=== PATIENT | female | born 1955 | race Caucasian/White ===

== ENCOUNTER 2021-01-02 09:50 | Inpatient (IN) ==
[2021-01-02] MEDS ORDERED: *HR* Rocuronium Bromide 50 MG/5 ML VIAL ONE (10:02)
[2021-01-02] MEDS ORDERED: Dexamethasone 4 MG/ML VIAL ONE (10:02)
[2021-01-02] MEDS ORDERED: Ondansetron 4 MG/2 ML VIAL ONE (10:02)
[2021-01-02] MEDS ORDERED: Lidocaine -MPF 2% 2 ML VIAL ONE (10:02)
[2021-01-02] MEDS ORDERED: *HR* Propofol 200 MG/20 ML VIAL IVP ONE (10:03)
[2021-01-02] MEDS ORDERED: *HR* Remifentanil 1 MG VIAL IVP ONE (10:03)
[2021-01-02] MEDS ORDERED: *HR* FentaNYL (PF) 100 MCG/2 ML VIAL ONE (10:03)
[2021-01-02] MEDS ORDERED: Heparin 1,000 UNITS/500 mL 1,000 ML ONE (10:13)
[2021-01-02] MEDS ORDERED: Protamine Sulfate 50 MG/5 ML VIAL IVP ONE (10:13)
[2021-01-02] MEDS ORDERED: CeFAZolin Syr 2,000MG/20 ML 2,000 MG/20 ML SYRINGE IVPB ONE (10:24)
[2021-01-02] MEDS ORDERED: Ringers Solution, Lactated 1,000 ML IVC SCH (10:30)
[2021-01-02] MEDS ORDERED: *HR* OxyCODONE Immed Rel 5 MG TABLET PO PRN ×2 (10:57→15:37)
[2021-01-02] MEDS ORDERED: *HR* Labetalol 20 MG/4 ML SYRINGE IVP PRN ×2 (10:57→15:37)
[2021-01-02] MEDS ORDERED: Acetaminophen IV 1,000 MG/100 ML BAG IVPB ONE (10:57)
[2021-01-02] MEDS ORDERED: Famotidine 20 MG/2 ML VIAL IVP ONE (10:57)
[2021-01-02] MEDS ORDERED: *HR* HYDROmorphone (PF) 1 MG/ML SYRINGE IVP PRN (10:57)
[2021-01-02] MEDS ORDERED: *HR* Vasopressin 20 UNIT/ML VIAL ONE (11:19)
[2021-01-02] MEDS ORDERED: Ipratropium/Albuterol Neb 3 ML IH ONE (11:22)
[2021-01-02] MEDS ORDERED: ceFAZolin 1,000 MG, Sodium Chloride IRRigation 1,000 ML IR ONE (11:30)
[2021-01-02] MEDS ORDERED: EPHEDrine 50 MG/ML VIAL ONE (12:27)
[2021-01-02] MEDS ORDERED: *HR* Heparin 5,000 UNIT/ML VIAL ONE (13:07)
[2021-01-02] MEDS ORDERED: *HR* PHENYLEPHRINE 1,000 MCG/10 ML SYRINGE IVP ONE (13:49)
[2021-01-02] MEDS ORDERED: Heparin 1,000 UNITS/500 mL 0 ML ONE (13:49)
[2021-01-02] MEDS ORDERED: *HR* Labetalol 20 MG/4 ML SYRINGE IVP ONE (13:52)
[2021-01-02] MEDS ORDERED: Sugammadex Sodium 200 MG/2 ML VIAL IV ONE (13:52)
[2021-01-02] MEDS ORDERED: Naloxone 0.4 MG/ML INJ IVP PRN ×2 (15:37)
[2021-01-02] MEDS ORDERED: *HR* HYDROcodone/Acet 5/325 mg TABLET PO PRN (15:37)
[2021-01-02] MEDS ORDERED: Ondansetron 4 MG/2 ML VIAL IVP PRN (15:37)
[2021-01-02] MEDS ORDERED: Artificial Tears SOLN 15 ML BOTTLE LEFT EYE PRN (17:05)
[2021-01-02] MEDS: *HR* Metformin 500 MG TABLET PO SCH (17:14)
[2021-01-02 17:44] LABS: Basophils % 0.2 %; Eosinophils % 0.1 %; Hematocrit 36.8 % (35.3-44.9); Hemoglobin 11.8 g/dL (11.5-15.4); Immature Granulocytes % 0.6 % (0-4); Lymphocytes # 1.2 K/mcL (0.6-4.6); Lymphocytes % 12.1 %; Mean Corpuscular HGB Conc 32.1 g/dL (31.6-35.5); Mean Corpuscular Hemoglobin 30.8 pg (28.0-33.3); Mean Corpuscular Volume 96.1 fL (83.0-100.0); Mean Platelet Volume 10.7 fL (9.4-12.4); Monocytes # 0.1 K/mcL (0.0-1.3); Monocytes % 1.4 %; Neutrophils # 8.6 K/mcL (1.6-8.9); Platelet Count 176 K/mcL (140-400); Red Blood Count 3.83 M/mcL (3.82-4.97); Red Cell Distribution Width 12.6 % (11.5-14.5); Segmented Neutrophils % 85.6 %
[2021-01-02] MEDS: CeFAZolin 2 GM/120 ML BAG IVPB SCH (19:37)
[2021-01-02] MEDS: *HR* GlipiZIDE XL (24 HR) 10 MG TABLET PO SCH (19:39)
[2021-01-02] MEDS: Budesonide/Formoterol 80/4.5 1 PUFF INH IH SCH (20:10)
[2021-01-03 04:06] LABS: Basophils % 0.1 %; Hematocrit 35.7 % (35.3-44.9); Hemoglobin 11.5 g/dL (11.5-15.4); Immature Granulocytes % 0.4 % (0-4); Lymphocytes % 14.4 %; Mean Corpuscular HGB Conc 32.2 g/dL (31.6-35.5); Mean Corpuscular Hemoglobin 30.5 pg (28.0-33.3); Mean Corpuscular Volume 94.7 fL (83.0-100.0); Mean Platelet Volume 10.5 fL (9.4-12.4); Monocytes # 0.9 K/mcL (0.0-1.3); Monocytes % 6.5 %; Neutrophils # 10.7 K/mcL (1.6-8.9); Platelet Count 214 K/mcL (140-400); Red Blood Count 3.77 M/mcL (3.82-4.97); Red Cell Distribution Width 12.4 % (11.5-14.5); Segmented Neutrophils % 78.6 %; White Blood Count 13.6 K/mcL (4.3-11.1)
[2021-01-03 04:20] LABS: BUN/Creatinine Ratio 25 (6-26); Blood Urea Nitrogen 18 mg/dL (8-23); Carbon Dioxide 25 mEq/L (23-29); Chloride 103 mEq/L (98-107); Glucose 242 mg/dL (70-105); Osmolality,Calculated 292 (280-300); Potassium 4.7 mEq/L (3.5-5.1); Sodium 136 mEq/L (136-145); eGFR For African Americans > 60 (> 60); eGFR For Non-African Americans > 60 (> 60)
[2021-01-03] MEDS: CeFAZolin 2 GM/120 ML BAG IVPB SCH ×2 (05:08→11:46)
[2021-01-03] MEDS: Acetaminophen 325 MG TABLET PO PRN ×2 (05:44→11:46)
[2021-01-03] MEDS: *HR* Metformin 500 MG TABLET PO SCH (07:47)
[2021-01-03] MEDS: *HR* GlipiZIDE XL (24 HR) 10 MG TABLET PO SCH (07:47)
[2021-01-03] MEDS: Budesonide/Formoterol 80/4.5 1 PUFF INH IH SCH (08:06)
[2021-01-03] MEDS ORDERED: Aspirin Enteric Coated 81 MG Tablet PO SCH (09:00)
[2021-01-03] MEDS ORDERED: Cyanocobalamin (B-12) 1,000 MCG TABLET PO SCH (09:00)
[2021-01-03 11:33] VITALS: BP 132/68
== END 2021-01-03 16:18 | disposition home or self-care (01) | DRG 39 ==
LOC: SAMDAY 09:50 → 2NNU 11:45
PROVIDERS: ADMIT Surgery Vascular Surgery; ATTEND Surgery Vascular Surgery

== ENCOUNTER 2021-08-14 12:37 | Inpatient (IN) ==
[2021-08-14 13:13] LABS: Basophils % 0.3 %; Hematocrit 37.8 % (35.3-44.9); Hemoglobin 12.6 g/dL (11.5-15.4); Immature Granulocytes % 1.7 % (0-4); Lymphocytes # 0.8 K/mcL (0.6-4.6); Lymphocytes % 13.4 %; Mean Corpuscular HGB Conc 33.3 g/dL (31.6-35.5); Mean Corpuscular Hemoglobin 29.6 pg (28.0-33.3); Mean Corpuscular Volume 88.9 fL (83.0-100.0); Mean Platelet Volume 10.7 fL (9.4-12.4); Monocytes # 0.7 K/mcL (0.0-1.3); Monocytes % 11.2 %; Neutrophils # 4.3 K/mcL (1.6-8.9); Platelet Count 173 K/mcL (140-400); Red Blood Count 4.25 M/mcL (3.82-4.97); Red Cell Distribution Width 13.2 % (11.5-14.5); Segmented Neutrophils % 73.4 %; White Blood Count 5.8 K/mcL (4.3-11.1)
[2021-08-14 14:12] LABS: Bilirubin,Total 0.5 mg/dL (0.3-1.0)
[2021-08-14 14:41] LABS: Amphetamine Screen,Urine Negative ng/mL (Cutoff=1000); Barbiturate Screen,Urine Negative ng/mL (Cutoff=200); Benzodiazepines Screen,Urine Negative ng/mL (Cutoff=200); Cannabinoid Screen,Urine Negative ng/mL (Cutoff = 50); Cocaine Screen,Urine Negative ng/mL (Cutoff= 300); Opiate Screen,Urine Negative ng/mL (Cutoff=300); Phencyclidine Screen,Urine Negative ng/mL (Cutoff=25)
[2021-08-14 14:44] LABS: Bilirubin,Urine Negative (Negative); Blood,Urine Small (Negative); Clarity,Urine Clear (Clear); Color,Urine Light-Yellow (Yellow); Glucose,Urine (UA) >=1000 mg/dL (Normal); Ketones,Urine 40 mg/dL (Negative); Leukocyte Esterase,Urine Negative (Negative); Mucus,Urine Few per lpf (None-Few); Nitrite,Urine Negative (Negative); Protein,Urine 200 mg/dL (Neg-Trace); RBC,Urine 0-3 per hpf (0-3); Specific Gravity,Urine 1.025 (1.010-1.025); Squamous Epithelial Cell,Urine Few per hpf (None-Few); Urobilinogen,Urine Normal (Normal); WBC,Urine 0-3 per hpf (0-3)
[2021-08-14 14:51] LABS: Alanine Aminotransferase 49 Units/L (7-52); Albumin/Globulin Ratio 1.2 (1.1-2.2); Alkaline Phosphatase 115 Units/L (34-104); Aspartate Amino Transferase 140 Units/L (13-39); BUN/Creatinine Ratio 15 (6-26); Bilirubin,Direct 0.2 mg/dL (0.0-0.2); Bilirubin,Indirect 0.3 mg/dL (0.0-1.0); Blood Urea Nitrogen 14 mg/dL (8-23); Calcium 8.5 mg/dL (8.6-10.3); Carbon Dioxide 17 mEq/L (23-29); Chloride 88 mEq/L (98-107); Ethanol < 10 mg/dL (Less than 10); Globulin 3.4 g/dL (2.4-3.5); Glucose 442 mg/dL (70-105); Osmolality,Calculated 272 (280-300); Potassium 4.7 mEq/L (3.5-5.1); Sodium 121 mEq/L (136-145); Total Protein 7.4 g/dL (6.4-8.9); Troponin I < 0.03 ng/mL (< 0.04); eGFR For African Americans > 60 (> 60); eGFR For Non-African Americans > 60 (> 60)
[2021-08-14] MEDS ORDERED: 0.9 % Sodium Chloride 500 ML IVC ONE (15:43)
[2021-08-14 16:25] LABS: VBG HCO3 18 mEq/L (21-27); VBG PCO2 30 mmHg (41-51); VBG PH 7.38 pH Units (7.32-7.42); VBG PO2 62 mmHg (25-50)
[2021-08-14] MEDS ORDERED: Insulin Human Regular 10 UNIT in 0.9 % Sodium Chloride 10 ML IV ONE (16:48)
[2021-08-14] MEDS ORDERED: Acetaminophen 325 MG TABLET PO PRN (16:53)
[2021-08-14] MEDS ORDERED: Ondansetron 4 MG/2 ML VIAL IVP PRN (17:18)
[2021-08-14] MEDS ORDERED: Naloxone 0.4 MG/ML INJ IVP PRN (17:18)
[2021-08-14] MEDS ORDERED: 0.9 % Sodium Chloride 500 ML IVC SCH (17:30)
[2021-08-14] MEDS ORDERED: Dextrose Gel 15 GM/37.5 ML TUBE PO PRN ×2 (17:36)
[2021-08-14] MEDS ORDERED: D5% in Water 1,000 ML IVC PRN (17:36)
[2021-08-14] MEDS ORDERED: *HR* Dextrose 50 % in Water (Syg) 50 ML SYRINGE IVP PRN (17:36)
[2021-08-14] MEDS ORDERED: Remdesivir 200 MG in 0.9 % Sodium Chloride 100 ML IVPB ONE (17:36)
[2021-08-14 17:38] LABS: C-Reactive Protein 110 mg/L (Less than 10); Lactate Dehydrogenase 481 Units/L (140-271)
[2021-08-14 18:01] LABS: Ferritin > 1500 ng/mL (10-120)
[2021-08-14 18:46] LABS: BUN/Creatinine Ratio 16 (6-26); Blood Urea Nitrogen 14 mg/dL (8-23); Carbon Dioxide 16 mEq/L (23-29); Chloride 92 mEq/L (98-107); Glucose 398 mg/dL (70-105); Osmolality,Calculated 275 (280-300); Potassium 4.5 mEq/L (3.5-5.1); Sodium 124 mEq/L (136-145); eGFR For African Americans > 60 (> 60); eGFR For Non-African Americans > 60 (> 60)
[2021-08-14] MEDS ORDERED: Isovue-370 500 ML BOTTLE IVP ONE (19:09)
[2021-08-14] MEDS: Ipratropium 1 PUFF INHALER IH SCH ×3 (19:36→19:40)
[2021-08-14] MEDS ORDERED: Insulin DETEMIR 100 UNIT/ML X5UNITS SUBQ SCH (21:00)
[2021-08-14] MEDS: Insulin LISPRO 300 UNITS/3 ML VIAL SUBQ SCH (21:38)
[2021-08-14 23:33] LABS: BUN/Creatinine Ratio 13 (6-26); Blood Urea Nitrogen 11 mg/dL (8-23); Calcium 7.7 mg/dL (8.6-10.3); Carbon Dioxide 21 mEq/L (23-29); Chloride 96 mEq/L (98-107); Glucose 324 mg/dL (70-105); Osmolality,Calculated 280 (280-300); Potassium 4.2 mEq/L (3.5-5.1); Sodium 129 mEq/L (136-145); eGFR For African Americans > 60 (> 60); eGFR For Non-African Americans > 60 (> 60)
[2021-08-15] MEDS: Budesonide/Formoterol 160/4.5 1 PUFF INH IH SCH ×3 (00:05→20:30)
[2021-08-15] MEDS: Ipratropium 1 PUFF INHALER IH SCH ×7 (00:05→23:54)
[2021-08-15] MEDS ORDERED: *HR* LORazepam 1 MG TABLET PO ONE ×2 (01:53→04:45)
[2021-08-15] MEDS: Insulin LISPRO 300 UNITS/3 ML VIAL SUBQ SCH ×6 (04:21→22:23)
[2021-08-15 05:30] LABS: VBG HCO3 19 mEq/L (21-27); VBG PCO2 24 mmHg (41-51); VBG PO2 223 mmHg (25-50)
[2021-08-15] MEDS: *HR* Enoxaparin 40 MG/0.4 ML SYRINGE SQ SCH (05:44)
[2021-08-15 05:54] LABS: Basophils % 0.2 %; Hematocrit 36.1 % (35.3-44.9); Hemoglobin 12.1 g/dL (11.5-15.4); Lymphocytes # 0.7 K/mcL (0.6-4.6); Lymphocytes % 10.8 %; Mean Corpuscular HGB Conc 33.5 g/dL (31.6-35.5); Mean Corpuscular Hemoglobin 29.6 pg (28.0-33.3); Mean Corpuscular Volume 88.3 fL (83.0-100.0); Mean Platelet Volume 10.1 fL (9.4-12.4); Monocytes # 0.4 K/mcL (0.0-1.3); Monocytes % 5.3 %; Neutrophils # 5.4 K/mcL (1.6-8.9); Platelet Count 179 K/mcL (140-400); Red Blood Count 4.09 M/mcL (3.82-4.97); Red Cell Distribution Width 13.2 % (11.5-14.5); Segmented Neutrophils % 81.7 %; White Blood Count 6.6 K/mcL (4.3-11.1)
[2021-08-15 06:19] LABS: Alanine Aminotransferase 40 Units/L (7-52); Albumin 3.6 g/dL (3.5-5.7); Albumin/Globulin Ratio 1.1 (1.1-2.2); Alkaline Phosphatase 102 Units/L (34-104); Aspartate Amino Transferase 106 Units/L (13-39); BUN/Creatinine Ratio 13 (6-26); Bilirubin,Direct 0.1 mg/dL (0.0-0.2); Bilirubin,Indirect 0.3 mg/dL (0.0-1.0); Bilirubin,Total 0.4 mg/dL (0.3-1.0); Blood Urea Nitrogen 11 mg/dL (8-23); Calcium 8.1 mg/dL (8.6-10.3); Carbon Dioxide 21 mEq/L (23-29); Chloride 97 mEq/L (98-107); Globulin 3.3 g/dL (2.4-3.5); Glucose 199 mg/dL (70-105); Osmolality,Calculated 273 (280-300); Potassium 4.3 mEq/L (3.5-5.1); Sodium 129 mEq/L (136-145); Total Protein 6.9 g/dL (6.4-8.9); eGFR For African Americans > 60 (> 60); eGFR For Non-African Americans > 60 (> 60)
[2021-08-15 07:09] LABS: Platelet Estimate Normal (Normal); Reactive Lymphocytes Present (Not Present)
[2021-08-15] MEDS ORDERED: *HR* LORazepam 2 MG/ML VIAL IVP PRN (08:49)
[2021-08-15] MEDS ORDERED: cefTRIAXone 1,000 MG in Water for inj. (sterile) 10 ML IVP SCH (09:00)
[2021-08-15] MEDS ORDERED: Azithromycin 250 MG TABLET PO SCH ×2 (09:00→21:45)
[2021-08-15] MEDS: Aspirin Enteric Coated 81 MG Tablet PO SCH (09:26)
[2021-08-15] MEDS: Cyanocobalamin (B-12) 1,000 MCG TABLET PO SCH (09:26)
[2021-08-15] MEDS: Insulin DETEMIR 100 UNIT/ML X5UNITS SUBQ SCH ×2 (09:27→22:23)
[2021-08-15] MEDS ORDERED: *HR* Midazolam HCl 5 MG/5 ML VIAL IVP ONE ×3 (09:46→23:20)
[2021-08-15] MEDS ORDERED: *HR* Succinylcholine 200 MG/10 ML VIAL IVP ONE (09:46)
[2021-08-15] MEDS ORDERED: *HR* Etomidate 20 MG/10 ML AMPUL IVP ONE (09:46)
[2021-08-15] MEDS: Dexmedetomidine HCl 400 MCG/100 ML MLS IVC SCH ×2 (14:52→22:07)
[2021-08-15] MEDS: Remdesivir 100 MG in 0.9 % Sodium Chloride 100 ML IVPB SCH (17:07)
[2021-08-15 20:24] LABS: C-Reactive Protein 158 mg/L (Less than 10)
[2021-08-15 21:53] LABS: ABG Base Excess -6 mEq/L (-2 to 3); ABG HCO3 17 mEq/L (21-27); ABG Oxygen Saturation 85 % (95-98); ABG PCO2 25 mmHg (35-45); ABG PH 7.43 pH Units (7.32-7.45); ABG PO2 47 mmHg (85-104); ABG TCO2 17 mEq/L (20-26)
[2021-08-15] MEDS: cefTRIAXone 1,000 MG in Water for inj. (sterile) 10 ML IVP SCH (22:23)
[2021-08-15] MEDS: Azithromycin 500 MG in 0.9 % Sodium Chloride 250 ML IVPB SCH (22:23)
[2021-08-15] MEDS ORDERED: Artificial Tears SOLN 15 ML BOTTLE BOTH EYES PRN (22:24)
[2021-08-15] MEDS ORDERED: 0.9 % Sodium Chloride 1,000 ML ONE (22:55)
[2021-08-15] MEDS: FentaNYL (PF) 1,000 MCG/100 ML IV.SOLN IVC SCH (23:05)
[2021-08-15] MEDS: Cisatracurium 200 MG in 0.9 % Sodium Chloride 180 ML IVC SCH (23:23)
[2021-08-15] MEDS: Midazolam HCl 50 MG/100 ML IV.SOLN IVC SCH (23:23)
[2021-08-16] MEDS ORDERED: Furosemide 20 MG/2 ML VIAL IVP ONE ×2 (01:10→08:19)
[2021-08-16 01:14] LABS: ABG Base Excess -7 mEq/L (-2 to 3); ABG HCO3 22 mEq/L (21-27); ABG Oxygen Saturation 86 % (95-98); ABG PCO2 55 mmHg (35-45); ABG PH 7.21 pH Units (7.32-7.45); ABG PO2 64 mmHg (85-104); ABG TCO2 24 mEq/L (20-26); Blood Gas VT 420 cc
[2021-08-16] MEDS: Artificial Tears SOLN 15 ML BOTTLE BOTH EYES SCH ×7 (01:22→23:55)
[2021-08-16] MEDS: Insulin LISPRO 300 UNITS/3 ML VIAL SUBQ SCH ×6 (01:24→20:53)
[2021-08-16 01:54] LABS: Hematocrit 30.6 % (35.3-44.9); Mean Corpuscular HGB Conc 32.4 g/dL (31.6-35.5); Mean Corpuscular Hemoglobin 29.7 pg (28.0-33.3); Mean Corpuscular Volume 91.9 fL (83.0-100.0); Mean Platelet Volume 10.2 fL (9.4-12.4); Monocytes # 0.2 K/mcL (0.0-1.3); Platelet Count 156 K/mcL (140-400); Red Blood Count 3.33 M/mcL (3.82-4.97); Red Cell Distribution Width 13.8 % (11.5-14.5); White Blood Count 5.9 K/mcL (4.3-11.1)
[2021-08-16 01:55] LABS: Hemoglobin 9.9 g/dL (11.5-15.4)
[2021-08-16 01:57] LABS: VBG Ionized Calcium 0.89 mmol/L (1.15-1.35)
[2021-08-16 02:12] LABS: Lymphocytes # 0.4 K/mcL (0.6-4.6); Neutrophils # 5.2 K/mcL (1.6-8.9)
[2021-08-16 02:13] LABS: Albumin 3.1 g/dL (3.5-5.7); Albumin/Globulin Ratio 0.9 (1.1-2.2); Bilirubin,Direct 0.2 mg/dL (0.0-0.2); Bilirubin,Indirect 0.2 mg/dL (0.0-1.0); Bilirubin,Total 0.4 mg/dL (0.3-1.0); Globulin 3.3 g/dL (2.4-3.5); Platelet Estimate Normal (Normal); Total Protein 6.4 g/dL (6.4-8.9); Toxic Granulation Present (Not Present)
[2021-08-16 02:16] LABS: Alanine Aminotransferase 25 Units/L (7-52); Albumin 2.7 g/dL (3.5-5.7); Alkaline Phosphatase 67 Units/L (34-104); Aspartate Amino Transferase 74 Units/L (13-39); BUN/Creatinine Ratio 22 (6-26); Bilirubin,Total 0.3 mg/dL (0.3-1.0); Blood Urea Nitrogen 25 mg/dL (8-23); C-Reactive Protein 237 mg/L (Less than 10); Calcium 6.6 mg/dL (8.6-10.3); Carbon Dioxide 19 mEq/L (23-29); Chloride 106 mEq/L (98-107); Globulin 2.8 g/dL (2.4-3.5); Glucose 242 mg/dL (70-105); Lactate Dehydrogenase 501 Units/L (140-271); Osmolality,Calculated 290 (280-300); Potassium 4.2 mEq/L (3.5-5.1); Sodium 134 mEq/L (136-145); Total Protein 5.5 g/dL (6.4-8.9); eGFR For African Americans 58 (> 60); eGFR For Non-African Americans 48 (> 60)
[2021-08-16 02:43] LABS: Ferritin > 1500 ng/mL (10-120)
[2021-08-16] MEDS: FentaNYL (PF) 1,000 MCG/100 ML IV.SOLN IVC SCH ×4 (03:37→19:45)
[2021-08-16] MEDS: Ipratropium 1 PUFF INHALER IH SCH ×6 (03:59→23:44)
[2021-08-16 04:15] LABS: ABG Base Excess -6 mEq/L (-2 to 3); ABG HCO3 22 mEq/L (21-27); ABG Oxygen Saturation 89 % (95-98); ABG PCO2 58 mmHg (35-45); ABG PH 7.19 pH Units (7.32-7.45); ABG PO2 71 mmHg (85-104); ABG TCO2 24 mEq/L (20-26); Blood Gas VT 420 cc
[2021-08-16] MEDS: Norepinephrine 4 MG/254 ML IV.SOLN IVC SCH ×4 (04:20→22:01)
[2021-08-16] MEDS: *HR* Enoxaparin 40 MG/0.4 ML SYRINGE SQ SCH (05:44)
[2021-08-16] MEDS: Budesonide/Formoterol 160/4.5 1 PUFF INH IH SCH ×2 (07:32→19:43)
[2021-08-16 07:39] LABS: INR 1.3; Prothrombin Time 14.8 Seconds (9.4-12.1)
[2021-08-16] MEDS: Chlorhexidine Rinse 15 ML MOUTHWASH MM SCH ×2 (08:06→20:52)
[2021-08-16] MEDS: cefTRIAXone 1,000 MG in Water for inj. (sterile) 10 ML IVP SCH (08:06)
[2021-08-16] MEDS: Pantoprazole 40 MG VIAL IVP SCH (08:06)
[2021-08-16] MEDS: Cisatracurium 200 MG in 0.9 % Sodium Chloride 180 ML IVC SCH ×2 (08:07→22:00)
[2021-08-16] MEDS: Aspirin Enteric Coated 81 MG Tablet PO SCH (08:08)
[2021-08-16] MEDS: Cyanocobalamin (B-12) 1,000 MCG TABLET PO SCH (08:08)
[2021-08-16] MEDS: Insulin DETEMIR 100 UNIT/ML X5UNITS SUBQ SCH ×2 (08:17→20:56)
[2021-08-16] MEDS ORDERED: Albumin 25% 25gram/100mL 25 GM/100 ML IV.SOLN IVPB ONE (08:19)
[2021-08-16] MEDS: Midazolam HCl 50 MG/100 ML IV.SOLN IVC SCH (13:41)
[2021-08-16 17:09] LABS: Amorphous Sediment,Urine Few per hpf (None-Few); Bacteria,Urine Few per hpf (None-Few); Bilirubin,Urine Negative (Negative); Blood,Urine Large (Negative); Clarity,Urine Ex.Turbid (Clear); Color,Urine Orange (Yellow); Glucose,Urine (UA) 30 mg/dL (Normal); Ketones,Urine Negative (Negative); Leukocyte Esterase,Urine Trace (Negative); Nitrite,Urine Negative (Negative); Protein,Urine 200 mg/dL (Neg-Trace); RBC,Urine TNTC per hpf (0-3); Specific Gravity,Urine 1.023 (1.010-1.025); Squamous Epithelial Cell,Urine Few per hpf (None-Few); Urobilinogen,Urine Normal (Normal); WBC,Urine 15-30 per hpf (0-3)
[2021-08-16] MEDS: Remdesivir 100 MG in 0.9 % Sodium Chloride 100 ML IVPB SCH (18:18)
[2021-08-16] MEDS: Vasopressin 40 UNIT in D5% in Water 100 ML IVC SCH (18:50)
[2021-08-16] MEDS: Azithromycin 500 MG in 0.9 % Sodium Chloride 250 ML IVPB SCH (20:52)
[2021-08-17] MEDS: Insulin LISPRO 300 UNITS/3 ML VIAL SUBQ SCH ×8 (00:08→23:49)
[2021-08-17] MEDS: FentaNYL (PF) 1,000 MCG/100 ML IV.SOLN IVC SCH ×5 (00:36→22:20)
[2021-08-17] MEDS: Norepinephrine 4 MG/254 ML IV.SOLN IVC SCH ×7 (01:45→21:10)
[2021-08-17] MEDS: Ipratropium 1 PUFF INHALER IH SCH ×5 (03:36→19:48)
[2021-08-17 03:43] LABS: Hematocrit 32.1 % (35.3-44.9); Mean Corpuscular HGB Conc 31.2 g/dL (31.6-35.5); Mean Corpuscular Hemoglobin 29.2 pg (28.0-33.3); Mean Corpuscular Volume 93.9 fL (83.0-100.0); Mean Platelet Volume 10.2 fL (9.4-12.4); Platelet Count 283 K/mcL (140-400); Red Blood Count 3.42 M/mcL (3.82-4.97); Red Cell Distribution Width 14.5 % (11.5-14.5)
[2021-08-17 03:44] LABS: VBG Ionized Calcium 0.92 mmol/L (1.15-1.35)
[2021-08-17 03:52] LABS: ABG Base Excess -11 mEq/L (-2 to 3); ABG HCO3 18 mEq/L (21-27); ABG Oxygen Saturation 91 % (95-98); ABG PCO2 55 mmHg (35-45); ABG PH 7.13 pH Units (7.32-7.45); ABG PO2 82 mmHg (85-104); ABG TCO2 20 mEq/L (20-26); Blood Gas VT 420 cc
[2021-08-17] MEDS: Artificial Tears SOLN 15 ML BOTTLE BOTH EYES SCH ×6 (03:58→23:41)
[2021-08-17 04:02] LABS: Albumin 2.6 g/dL (3.5-5.7); Albumin/Globulin Ratio 0.9 (1.1-2.2); Bilirubin,Direct 0.3 mg/dL (0.0-0.2); Bilirubin,Indirect 0.2 mg/dL (0.0-1.0); Bilirubin,Total 0.5 mg/dL (0.3-1.0); Calcium 6.3 mg/dL (8.6-10.3); Globulin 2.9 g/dL (2.4-3.5); Magnesium 1.9 mg/dL (1.6-2.6); Potassium 4.5 mEq/L (3.5-5.1); Total Protein 5.5 g/dL (6.4-8.9)
[2021-08-17 04:12] LABS: White Blood Count 14.6 K/mcL (4.3-11.1)
[2021-08-17 04:35] LABS: Lymphocytes # 1.5 K/mcL (0.6-4.6); Monocytes # 0.6 K/mcL (0.0-1.3); Neutrophils # 12.3 K/mcL (1.6-8.9); Reactive Lymphocytes Present (Not Present)
[2021-08-17 04:36] LABS: Platelet Estimate Normal (Normal); Poikilocytosis 2+ (Not Present); Smudge Cells Present (Not Present); Toxic Granulation Present (Not Present)
[2021-08-17] MEDS: Calcium Gluconate 1gm/50mL 1 GM/50 ML BAG IVPB PRN ×2 (04:43→05:37)
[2021-08-17 05:21] LABS: ABG Base Excess -9 mEq/L (-2 to 3); ABG HCO3 17 mEq/L (21-27); ABG Oxygen Saturation 94 % (95-98); ABG PCO2 35 mmHg (35-45); ABG PH 7.29 pH Units (7.32-7.45); ABG PO2 79 mmHg (85-104); ABG TCO2 18 mEq/L (20-26); Blood Gas Modality AF; Blood Gas VT 420 cc
[2021-08-17] MEDS: *HR* Enoxaparin 40 MG/0.4 ML SYRINGE SQ SCH (05:21)
[2021-08-17] MEDS: Midazolam HCl 50 MG/100 ML IV.SOLN IVC SCH (06:25)
[2021-08-17] MEDS: Budesonide/Formoterol 160/4.5 1 PUFF INH IH SCH ×2 (07:36→19:48)
[2021-08-17] MEDS ORDERED: SODIUM BICARBONATE IVC SCH (08:08)
[2021-08-17] MEDS ORDERED: SODIUM CHLORIDE 0.45% IVC SCH (08:08)
[2021-08-17] MEDS: cefTRIAXone 1,000 MG in Water for inj. (sterile) 10 ML IVP SCH (08:36)
[2021-08-17] MEDS: Chlorhexidine Rinse 15 ML MOUTHWASH MM SCH ×2 (08:36→20:00)
[2021-08-17] MEDS: Cyanocobalamin (B-12) 1,000 MCG TABLET PO SCH (08:37)
[2021-08-17] MEDS: Pantoprazole 40 MG VIAL IVP SCH (08:37)
[2021-08-17] MEDS: Insulin DETEMIR 100 UNIT/ML X5UNITS SUBQ SCH ×2 (08:38→19:59)
[2021-08-17] MEDS: Aspirin Enteric Coated 81 MG Tablet PO SCH (08:40)
[2021-08-17] MEDS: Cisatracurium 200 MG in 0.9 % Sodium Chloride 180 ML IVC SCH (11:23)
[2021-08-17] MEDS: Dexmedetomidine HCl 400 MCG/100 ML MLS IVC SCH (11:25)
[2021-08-17] MEDS: Vasopressin 40 UNIT in D5% in Water 100 ML IVC SCH (17:18)
[2021-08-17] MEDS: Azithromycin 500 MG in 0.9 % Sodium Chloride 250 ML IVPB SCH (21:10)
[2021-08-18] MEDS: Ipratropium 1 PUFF INHALER IH SCH ×7 (00:06→23:41)
[2021-08-18] MEDS: Midazolam HCl 50 MG/100 ML IV.SOLN IVC SCH ×2 (00:30→18:00)
[2021-08-18] MEDS: Cisatracurium 200 MG in 0.9 % Sodium Chloride 180 ML IVC SCH ×2 (02:15→17:04)
[2021-08-18] MEDS: Norepinephrine 4 MG/254 ML IV.SOLN IVC SCH ×4 (02:34→10:38)
[2021-08-18] MEDS: FentaNYL (PF) 1,000 MCG/100 ML IV.SOLN IVC SCH ×4 (02:45→20:07)
[2021-08-18] MEDS: Artificial Tears SOLN 15 ML BOTTLE BOTH EYES SCH ×8 (03:46→23:48)
[2021-08-18] MEDS: Insulin LISPRO 300 UNITS/3 ML VIAL SUBQ SCH ×7 (03:47→23:49)
[2021-08-18 04:08] LABS: ABG Base Excess -2 mEq/L (-2 to 3); ABG HCO3 24 mEq/L (21-27); ABG Oxygen Saturation 100 % (95-98); ABG PCO2 45 mmHg (35-45); ABG PH 7.33 pH Units (7.32-7.45); ABG PO2 175 mmHg (85-104); ABG TCO2 25 mEq/L (20-26); Blood Gas VT 420 cc
[2021-08-18 04:41] LABS: ABG Ionized Calcium 0.93 mmol/L (1.15-1.35)
[2021-08-18 04:47] LABS: Hematocrit 33.6 % (35.3-44.9); Hemoglobin 10.6 g/dL (11.5-15.4); Mean Corpuscular HGB Conc 31.5 g/dL (31.6-35.5); Mean Corpuscular Hemoglobin 29.4 pg (28.0-33.3); Mean Corpuscular Volume 93.3 fL (83.0-100.0); Mean Platelet Volume 9.9 fL (9.4-12.4); Nucleated Red Blood Cells 0.1 /100 WBC (0); Platelet Count 350 K/mcL (140-400); Red Cell Distribution Width 14.9 % (11.5-14.5)
[2021-08-18] MEDS ORDERED: Amiodarone Premix 150 MG/100 ML BAG IVPB ONE (04:55)
[2021-08-18] MEDS ORDERED: Amiodarone Premix 360 MG/200 ML BAG IVC ONE (04:55)
[2021-08-18] MEDS ORDERED: *HR* Heparin 5,000 UNIT/ML VIAL IVP PRN ×3 (05:02→08:45)
[2021-08-18] MEDS ORDERED: *HR* Heparin 5,000 UNIT/ML VIAL IVP ONE (05:02)
[2021-08-18 05:04] LABS: Lymphocytes # 2.5 K/mcL (0.6-4.6); Monocytes # 2.5 K/mcL (0.0-1.3); Platelet Estimate Normal (Normal); Reactive Lymphocytes Present (Not Present)
[2021-08-18 05:06] LABS: Albumin 2.6 g/dL (3.5-5.7); Albumin/Globulin Ratio 0.8 (1.1-2.2); Bilirubin,Direct 0.2 mg/dL (0.0-0.2); Bilirubin,Indirect 0.2 mg/dL (0.0-1.0); Bilirubin,Total 0.4 mg/dL (0.3-1.0); Calcium 6.9 mg/dL (8.6-10.3); Globulin 3.1 g/dL (2.4-3.5); Magnesium 2.1 mg/dL (1.6-2.6); Phosphorous 5.9 mg/dL (2.7-4.5); Potassium 4.2 mEq/L (3.5-5.1); Total Protein 5.7 g/dL (6.4-8.9)
[2021-08-18 05:30] LABS: Sodium, Urine 38.8 mEq/L
[2021-08-18] MEDS: *HR* Enoxaparin 40 MG/0.4 ML SYRINGE SQ SCH (05:42)
[2021-08-18] MEDS: Heparin 25,000UNIT/250ML 1/2NS 25,000 UNIT/250 ML IV.SOLN IVC SCH (06:18)
[2021-08-18] MEDS: Calcium Gluconate 1gm/50mL 1 GM/50 ML BAG IVPB SCH ×2 (06:56→07:45)
[2021-08-18] MEDS: cefTRIAXone 1,000 MG in Water for inj. (sterile) 10 ML IVP SCH (07:30)
[2021-08-18] MEDS: Chlorhexidine Rinse 15 ML MOUTHWASH MM SCH ×2 (07:30→19:33)
[2021-08-18] MEDS: Pantoprazole 40 MG VIAL IVP SCH (07:30)
[2021-08-18] MEDS: Cyanocobalamin (B-12) 1,000 MCG TABLET PO SCH (07:31)
[2021-08-18] MEDS: Aspirin Enteric Coated 81 MG Tablet PO SCH (07:32)
[2021-08-18] MEDS: Insulin DETEMIR 100 UNIT/ML X5UNITS SUBQ SCH ×2 (07:45→20:09)
[2021-08-18] MEDS: Budesonide/Formoterol 160/4.5 1 PUFF INH IH SCH ×2 (07:50→19:33)
[2021-08-18] MEDS ORDERED: Perflutren Lipid Microsphere 1.3 ML in 0.9 % Sodium Chloride 8.7 ML IVP PRN (09:12)
[2021-08-18] MEDS: Cholecalciferol (D-3) 1,000 UNIT (25MCG) TABLET PO SCH (09:28)
[2021-08-18] MEDS: Aspirin 81 MG TAB.CHEW GTUBE SCH (09:28)
[2021-08-18] MEDS: Amiodarone Premix 360 MG/200 ML BAG IVC SCH ×2 (11:18→20:30)
[2021-08-18 11:43] LABS: ABG Ionized Calcium 0.92 mmol/L (1.15-1.35)
[2021-08-18 12:00] LABS: INR 1.2; Prothrombin Time 13.3 Seconds (9.4-12.1)
[2021-08-18] MEDS ORDERED: Norepinephrine 8 MG in 0.9 % Sodium Chloride 250 ML IVC SCH (12:00)
[2021-08-18] MEDS ORDERED: Heparin 1,000 UNITS/500 mL 500 ML ONE (12:39)
[2021-08-18] MEDS: Vasopressin 40 UNIT in D5% in Water 100 ML IVC SCH (13:00)
[2021-08-18] MEDS ORDERED: *HR* Heparin 5,000 UNIT/ML VIAL ONE (13:06)
[2021-08-18] MEDS: Phenylephrine 50 MG in 0.9 % Sodium Chloride 250 ML IVC SCH ×2 (13:40→18:00)
[2021-08-18 13:44] LABS: ABG Base Excess -16 mEq/L (-2 to 3); ABG HCO3 15 mEq/L (21-27); ABG Oxygen Saturation 85 % (95-98); ABG PCO2 55 mmHg (35-45); ABG PH 7.04 pH Units (7.32-7.45); ABG PO2 73 mmHg (85-104); ABG TCO2 16 mEq/L (20-26); Blood Gas VT 350 cc
[2021-08-18] MEDS ORDERED: Sodium Bicarbonate 150 MEQ in D5% in Water 1,000 ML IVC SCH (13:45)
[2021-08-18] MEDS ORDERED: 0.9 % Sodium Chloride 1,000 ML ONE (13:51)
[2021-08-18] MEDS ORDERED: Insulin DETEMIR 100 UNIT/ML X5UNITS SUBQ ONE (14:30)
[2021-08-18] MEDS: PrismaSATE BGK 4/2.5 5,000 ML CRRT SCH ×5 (14:50→22:00)
[2021-08-18] MEDS: Dexmedetomidine HCl 400 MCG/100 ML MLS IVC SCH (15:06)
[2021-08-18] MEDS: Norepinephrine 8 MG in 0.9 % Sodium Chloride 250 ML IVC SCH (16:00)
[2021-08-18] MEDS: Azithromycin 500 MG in 0.9 % Sodium Chloride 250 ML IVPB SCH (21:15)
[2021-08-18 21:20] LABS: ABG Base Excess -6 mEq/L (-2 to 3); ABG HCO3 22 mEq/L (21-27); ABG Oxygen Saturation 90 % (95-98); ABG PCO2 56 mmHg (35-45); ABG PO2 73 mmHg (85-104); ABG TCO2 24 mEq/L (20-26); Blood Gas Modality ASSIST CONTROL; Blood Gas VT 350 cc
[2021-08-18 21:48] LABS: Calcium 6.8 mg/dL (8.6-10.3)
[2021-08-18] MEDS: Doxycycline 100 MG in 0.9 % Sodium Chloride Mini Bag 100 ML IVPB SCH (22:55)
[2021-08-18] MEDS: Piperacillin/Tazobactam 3.375 GM in 0.9 % Sodium Chloride Mini Bag 100 ML IVPB SCH (22:55)
[2021-08-19] MEDS: PrismaSATE BGK 4/2.5 5,000 ML CRRT SCH ×11 (01:00→21:55)
[2021-08-19] MEDS: Norepinephrine 8 MG in 0.9 % Sodium Chloride 250 ML IVC SCH ×2 (01:15→06:15)
[2021-08-19] MEDS: FentaNYL (PF) 1,000 MCG/100 ML IV.SOLN IVC SCH ×5 (01:34→23:15)
[2021-08-19] MEDS: Ipratropium 1 PUFF INHALER IH SCH ×6 (04:19→23:56)
[2021-08-19 04:23] LABS: ABG Base Excess -4 mEq/L (-2 to 3); ABG HCO3 24 mEq/L (21-27); ABG Oxygen Saturation 82 % (95-98); ABG PCO2 55 mmHg (35-45); ABG PH 7.25 pH Units (7.32-7.45); ABG PO2 55 mmHg (85-104); ABG TCO2 26 mEq/L (20-26); Blood Gas Modality ASSIST CONTROL; Blood Gas VT 350 cc
[2021-08-19 04:24] LABS: VBG Ionized Calcium 1.01 mmol/L (1.15-1.35)
[2021-08-19 04:40] LABS: Basophils % 0.1 %; Nucleated Red Blood Cells 0.2 /100 WBC (0)
[2021-08-19 04:42] LABS: Hematocrit 30.7 % (35.3-44.9); Hemoglobin 10.1 g/dL (11.5-15.4); Immature Granulocytes % 7.2 % (0-4); Lymphocytes # 1.4 K/mcL (0.6-4.6); Lymphocytes % 5.5 %; Mean Corpuscular HGB Conc 32.9 g/dL (31.6-35.5); Mean Corpuscular Hemoglobin 30.2 pg (28.0-33.3); Mean Corpuscular Volume 91.9 fL (83.0-100.0); Monocytes # 4.5 K/mcL (0.0-1.3); Monocytes % 17.4 %; Platelet Count 347 K/mcL (140-400); Red Blood Count 3.34 M/mcL (3.82-4.97); Red Cell Distribution Width 15.1 % (11.5-14.5); Segmented Neutrophils % 69.8 %; White Blood Count 25.7 K/mcL (4.3-11.1)
[2021-08-19 04:46] LABS: Neutrophils # 17.9 K/mcL (1.6-8.9)
[2021-08-19 04:47] LABS: Platelet Estimate Normal (Normal); Reactive Lymphocytes Present (Not Present)
[2021-08-19 04:58] LABS: Albumin 2.4 g/dL (3.5-5.7); Albumin/Globulin Ratio 0.9 (1.1-2.2); Bilirubin,Direct 0.2 mg/dL (0.0-0.2); Bilirubin,Indirect 0.2 mg/dL (0.0-1.0); Bilirubin,Total 0.4 mg/dL (0.3-1.0); Calcium 6.9 mg/dL (8.6-10.3); Globulin 2.8 g/dL (2.4-3.5); Phosphorous 3.5 mg/dL (2.7-4.5); Potassium 3.9 mEq/L (3.5-5.1); Total Protein 5.2 g/dL (6.4-8.9)
[2021-08-19] MEDS: Insulin LISPRO 300 UNITS/3 ML VIAL SUBQ SCH ×5 (05:40→20:43)
[2021-08-19] MEDS: Calcium Gluconate 1gm/50mL 1 GM/50 ML BAG IVPB SCH ×2 (05:46→06:46)
[2021-08-19] MEDS: Budesonide/Formoterol 160/4.5 1 PUFF INH IH SCH ×2 (07:50→19:41)
[2021-08-19] MEDS: Cisatracurium 200 MG in 0.9 % Sodium Chloride 180 ML IVC SCH (09:00)
[2021-08-19] MEDS: Piperacillin/Tazobactam 3.375 GM in 0.9 % Sodium Chloride Mini Bag 100 ML IVPB SCH ×2 (09:36→23:54)
[2021-08-19] MEDS: Pantoprazole 40 MG VIAL IVP SCH (09:37)
[2021-08-19] MEDS: Chlorhexidine Rinse 15 ML MOUTHWASH MM SCH ×2 (09:37→20:43)
[2021-08-19] MEDS: Doxycycline 100 MG in 0.9 % Sodium Chloride Mini Bag 100 ML IVPB SCH ×2 (09:37→20:42)
[2021-08-19] MEDS: Amiodarone Premix 360 MG/200 ML BAG IVC SCH ×2 (09:38→22:30)
[2021-08-19] MEDS: Cholecalciferol (D-3) 1,000 UNIT (25MCG) TABLET PO SCH (09:40)
[2021-08-19] MEDS: Dexamethasone Sodium Phos/PF 10 MG/ML VIAL IVP SCH (09:40)
[2021-08-19] MEDS: Cyanocobalamin (B-12) 1,000 MCG TABLET PO SCH (09:40)
[2021-08-19] MEDS: Aspirin 81 MG TAB.CHEW GTUBE SCH (09:41)
[2021-08-19] MEDS: Insulin DETEMIR 100 UNIT/ML X5UNITS SUBQ SCH ×2 (09:42→21:58)
[2021-08-19] MEDS: Artificial Tears SOLN 15 ML BOTTLE BOTH EYES SCH ×4 (09:42→23:54)
[2021-08-19] MEDS ORDERED: Calcium Chloride 2,000 MG in 0.9 % Sodium Chloride 100 ML IVPB ONE (10:30)
[2021-08-19] MEDS: Midazolam HCl 50 MG/100 ML IV.SOLN IVC SCH (12:25)
[2021-08-19] MEDS: Norepinephrine 16 MG in 0.9 % Sodium Chloride 500 ML IVC SCH (13:31)
[2021-08-19] MEDS: Vasopressin 40 UNIT in D5% in Water 100 ML IVC SCH (14:26)
[2021-08-19] MEDS: Dexmedetomidine HCl 400 MCG/100 ML MLS IVC SCH (14:26)
[2021-08-20] MEDS: Insulin LISPRO 300 UNITS/3 ML VIAL SUBQ SCH ×7 (00:32→23:40)
[2021-08-20] MEDS: PrismaSATE BGK 4/2.5 5,000 ML CRRT SCH ×12 (01:14→23:20)
[2021-08-20 01:17] LABS: ABG Base Excess -3 mEq/L (-2 to 3); ABG HCO3 25 mEq/L (21-27); ABG Oxygen Saturation 72 % (95-98); ABG PCO2 59 mmHg (35-45); ABG PH 7.24 pH Units (7.32-7.45); ABG PO2 45 mmHg (85-104); ABG TCO2 27 mEq/L (20-26); Blood Gas Modality ASSIST CONTROL; Blood Gas VT 350 cc
[2021-08-20] MEDS: Heparin 25,000UNIT/250ML 1/2NS 25,000 UNIT/250 ML IV.SOLN IVC SCH ×2 (01:55→08:20)
[2021-08-20] MEDS: Ipratropium 1 PUFF INHALER IH SCH ×5 (03:29→20:07)
[2021-08-20] MEDS: Artificial Tears SOLN 15 ML BOTTLE BOTH EYES SCH ×6 (04:00→23:40)
[2021-08-20 04:15] LABS: VBG Ionized Calcium 1.18 mmol/L (1.15-1.35)
[2021-08-20 04:21] LABS: ABG Base Excess -2 mEq/L (-2 to 3); ABG HCO3 26 mEq/L (21-27); ABG Oxygen Saturation 80 % (95-98); ABG PCO2 61 mmHg (35-45); ABG PH 7.24 pH Units (7.32-7.45); ABG PO2 53 mmHg (85-104); ABG TCO2 28 mEq/L (20-26); Blood Gas Modality ASSIST CONTROL; Blood Gas VT 350 cc
[2021-08-20 04:27] LABS: Mean Platelet Volume 10.2 fL (9.4-12.4); Nucleated Red Blood Cells 0.2 /100 WBC (0)
[2021-08-20 04:29] LABS: Hematocrit 32.1 % (35.3-44.9); Hemoglobin 10.1 g/dL (11.5-15.4); Mean Corpuscular HGB Conc 31.5 g/dL (31.6-35.5); Mean Corpuscular Hemoglobin 29.4 pg (28.0-33.3); Mean Corpuscular Volume 93.6 fL (83.0-100.0); Platelet Count 328 K/mcL (140-400); Red Blood Count 3.43 M/mcL (3.82-4.97); Red Cell Distribution Width 15.7 % (11.5-14.5)
[2021-08-20 04:45] LABS: Lymphocytes # 1.6 K/mcL (0.6-4.6); Monocytes # 2.6 K/mcL (0.0-1.3); Neutrophils # 21.3 K/mcL (1.6-8.9)
[2021-08-20 04:46] LABS: Albumin 2.3 g/dL (3.5-5.7); Albumin/Globulin Ratio 0.8 (1.1-2.2); Bilirubin,Total 0.4 mg/dL (0.3-1.0); Calcium 7.4 mg/dL (8.6-10.3); Globulin 2.8 g/dL (2.4-3.5); Magnesium 2.1 mg/dL (1.6-2.6); Phosphorous 2.5 mg/dL (2.7-4.5); Potassium 4.2 mEq/L (3.5-5.1); Total Protein 5.1 g/dL (6.4-8.9)
[2021-08-20 04:46] LABS: Platelet Estimate Normal (Normal); Reactive Lymphocytes Present (Not Present)
[2021-08-20] MEDS: FentaNYL (PF) 1,000 MCG/100 ML IV.SOLN IVC SCH (04:51)
[2021-08-20] MEDS: Midazolam HCl 50 MG/100 ML IV.SOLN IVC SCH (04:52)
[2021-08-20] MEDS: Calcium Gluconate 1gm/50mL 1 GM/50 ML BAG IVPB SCH ×2 (06:52→08:07)
[2021-08-20] MEDS: Budesonide/Formoterol 160/4.5 1 PUFF INH IH SCH ×2 (07:26→20:08)
[2021-08-20] MEDS: Cisatracurium 200 MG in 0.9 % Sodium Chloride 180 ML IVC SCH (08:46)
[2021-08-20] MEDS: Dexmedetomidine HCl 400 MCG/100 ML MLS IVC SCH (09:22)
[2021-08-20] MEDS: Doxycycline 100 MG in 0.9 % Sodium Chloride Mini Bag 100 ML IVPB SCH ×2 (09:30→22:08)
[2021-08-20] MEDS: Insulin DETEMIR 100 UNIT/ML X5UNITS SUBQ SCH ×2 (09:31→20:49)
[2021-08-20] MEDS: Aspirin 81 MG TAB.CHEW GTUBE SCH (09:32)
[2021-08-20] MEDS: Pantoprazole 40 MG VIAL IVP SCH (09:32)
[2021-08-20] MEDS: Cyanocobalamin (B-12) 1,000 MCG TABLET PO SCH (09:32)
[2021-08-20] MEDS: Cholecalciferol (D-3) 1,000 UNIT (25MCG) TABLET PO SCH (09:32)
[2021-08-20] MEDS: Chlorhexidine Rinse 15 ML MOUTHWASH MM SCH ×2 (09:32→19:43)
[2021-08-20] MEDS: Dexamethasone Sodium Phos/PF 10 MG/ML VIAL IVP SCH (09:32)
[2021-08-20] MEDS: FentaNYL (PF) 2,500 MCG/50 ML IV.SOLN IVC SCH ×2 (10:30→18:55)
[2021-08-20] MEDS: Vasopressin 40 UNIT in D5% in Water 100 ML IVC SCH (12:28)
[2021-08-20] MEDS: Phenylephrine 50 MG in 0.9 % Sodium Chloride 250 ML IVC SCH (12:28)
[2021-08-20] MEDS: Piperacillin/Tazobactam 3.375 GM in 0.9 % Sodium Chloride Mini Bag 100 ML IVPB SCH ×2 (16:50→23:41)
[2021-08-20] MEDS: Norepinephrine 16 MG in 0.9 % Sodium Chloride 500 ML IVC SCH (17:42)
[2021-08-21] MEDS: Ipratropium 1 PUFF INHALER IH SCH ×7 (00:09→23:57)
[2021-08-21] MEDS: PrismaSATE BGK 4/2.5 5,000 ML CRRT SCH ×11 (01:28→22:45)
[2021-08-21] MEDS: Heparin 25,000UNIT/250ML 1/2NS 25,000 UNIT/250 ML IV.SOLN IVC SCH (03:07)
[2021-08-21 03:31] LABS: Hematocrit 34.1 % (35.3-44.9); Hemoglobin 10.6 g/dL (11.5-15.4); Mean Corpuscular HGB Conc 31.1 g/dL (31.6-35.5); Mean Corpuscular Hemoglobin 29.4 pg (28.0-33.3); Mean Corpuscular Volume 94.7 fL (83.0-100.0); Mean Platelet Volume 10.5 fL (9.4-12.4); Nucleated Red Blood Cells 0.5 /100 WBC (0); Platelet Count 358 K/mcL (140-400); White Blood Count 27.7 K/mcL (4.3-11.1)
[2021-08-21 03:35] LABS: VBG Ionized Calcium 1.12 mmol/L (1.15-1.35)
[2021-08-21] MEDS: Vasopressin 40 UNIT in D5% in Water 100 ML IVC SCH ×2 (03:47→23:42)
[2021-08-21 03:51] LABS: Albumin 2.4 g/dL (3.5-5.7); Albumin/Globulin Ratio 0.8 (1.1-2.2); Bilirubin,Total 0.5 mg/dL (0.3-1.0); Calcium 7.5 mg/dL (8.6-10.3); Globulin 3.1 g/dL (2.4-3.5); Magnesium 2.4 mg/dL (1.6-2.6); Phosphorous 4.1 mg/dL (2.7-4.5); Potassium 4.8 mEq/L (3.5-5.1); Total Protein 5.5 g/dL (6.4-8.9)
[2021-08-21] MEDS: Artificial Tears SOLN 15 ML BOTTLE BOTH EYES SCH ×5 (04:00→21:33)
[2021-08-21 04:11] LABS: ABG Base Excess -3 mEq/L (-2 to 3); ABG HCO3 25 mEq/L (21-27); ABG Oxygen Saturation 83 % (95-98); ABG PCO2 60 mmHg (35-45); ABG PH 7.23 pH Units (7.32-7.45); ABG PO2 58 mmHg (85-104); ABG TCO2 27 mEq/L (20-26); Blood Gas VT 350 cc
[2021-08-21] MEDS: Insulin LISPRO 300 UNITS/3 ML VIAL SUBQ SCH ×5 (04:19→21:32)
[2021-08-21 04:20] LABS: Lymphocytes # 3.9 K/mcL (0.6-4.6); Neutrophils # 16.1 K/mcL (1.6-8.9); Platelet Estimate Normal (Normal); Reactive Lymphocytes Present (Not Present)
[2021-08-21] MEDS: Dexmedetomidine HCl 400 MCG/100 ML MLS IVC SCH (05:13)
[2021-08-21] MEDS: Norepinephrine 16 MG in 0.9 % Sodium Chloride 500 ML IVC SCH ×2 (05:31→15:48)
[2021-08-21] MEDS: Piperacillin/Tazobactam 3.375 GM in 0.9 % Sodium Chloride Mini Bag 100 ML IVPB SCH ×2 (07:46→16:36)
[2021-08-21] MEDS: Insulin DETEMIR 100 UNIT/ML X5UNITS SUBQ SCH ×2 (07:51→21:11)
[2021-08-21] MEDS: Budesonide/Formoterol 160/4.5 1 PUFF INH IH SCH ×2 (07:57→19:53)
[2021-08-21] MEDS: Chlorhexidine Rinse 15 ML MOUTHWASH MM SCH ×2 (09:18→21:11)
[2021-08-21] MEDS: Pantoprazole 40 MG VIAL IVP SCH (09:18)
[2021-08-21] MEDS: Dexamethasone Sodium Phos/PF 10 MG/ML VIAL IVP SCH (09:18)
[2021-08-21] MEDS: FentaNYL (PF) 2,500 MCG/50 ML IV.SOLN IVC SCH ×2 (09:18→23:30)
[2021-08-21] MEDS: Cyanocobalamin (B-12) 1,000 MCG TABLET PO SCH (09:18)
[2021-08-21] MEDS: Cholecalciferol (D-3) 1,000 UNIT (25MCG) TABLET PO SCH (09:19)
[2021-08-21] MEDS: Aspirin 81 MG TAB.CHEW GTUBE SCH (09:19)
[2021-08-21 10:43] LABS: ABG Base Excess -4 mEq/L (-2 to 3); ABG HCO3 26 mEq/L (21-27); ABG Oxygen Saturation 77 % (95-98); ABG PCO2 67 mmHg (35-45); ABG PH 7.19 pH Units (7.32-7.45); ABG PO2 53 mmHg (85-104); ABG TCO2 28 mEq/L (20-26); Blood Gas Modality ASSIST CONTROL; Blood Gas VT 350 cc
[2021-08-21] MEDS: Phenylephrine 50 MG in 0.9 % Sodium Chloride 250 ML IVC SCH (12:01)
[2021-08-21] MEDS: Cisatracurium 200 MG in 0.9 % Sodium Chloride 180 ML IVC SCH ×2 (15:48)
[2021-08-21] MEDS ORDERED: 0.9 % Sodium Chloride 2,000 ML ONE (17:23)
[2021-08-21] MEDS ORDERED: 0.9 % Sodium Chloride 1,000 ML ONE (17:28)
[2021-08-21] MEDS: Midazolam HCl 50 MG/100 ML IV.SOLN IVC SCH ×2 (20:30)
[2021-08-22] MEDS: Piperacillin/Tazobactam 3.375 GM in 0.9 % Sodium Chloride Mini Bag 100 ML IVPB SCH ×4 (00:10→23:42)
[2021-08-22] MEDS: Artificial Tears SOLN 15 ML BOTTLE BOTH EYES SCH ×7 (00:11→23:43)
[2021-08-22] MEDS: Insulin LISPRO 300 UNITS/3 ML VIAL SUBQ SCH ×7 (00:23→23:43)
[2021-08-22] MEDS: Norepinephrine 16 MG in 0.9 % Sodium Chloride 500 ML IVC SCH ×3 (00:41→23:00)
[2021-08-22] MEDS: Heparin 25,000 UNIT/250 ML 25,000 UNIT/250 ML IV.SOLN IVC SCH ×2 (01:30→19:30)
[2021-08-22] MEDS: PrismaSATE BGK 4/2.5 5,000 ML CRRT SCH ×12 (01:35→23:30)
[2021-08-22] MEDS: Cisatracurium 200 MG in 0.9 % Sodium Chloride 180 ML IVC SCH ×2 (01:43→13:54)
[2021-08-22] MEDS: Ipratropium 1 PUFF INHALER IH SCH ×5 (03:17→20:08)
[2021-08-22 03:40] LABS: Nucleated Red Blood Cells 0.6 /100 WBC (0); Red Cell Distribution Width 15.9 % (11.5-14.5)
[2021-08-22 03:42] LABS: Hematocrit 31.5 % (35.3-44.9); Hemoglobin 9.4 g/dL (11.5-15.4); Mean Corpuscular HGB Conc 29.8 g/dL (31.6-35.5); Mean Corpuscular Hemoglobin 29.5 pg (28.0-33.3); Mean Corpuscular Volume 98.7 fL (83.0-100.0); Mean Platelet Volume 10.6 fL (9.4-12.4); Platelet Count 324 K/mcL (140-400); Red Blood Count 3.19 M/mcL (3.82-4.97); White Blood Count 26.3 K/mcL (4.3-11.1)
[2021-08-22 03:45] LABS: ABG Base Excess -4 mEq/L (-2 to 3); ABG HCO3 24 mEq/L (21-27); ABG Oxygen Saturation 85 % (95-98); ABG PCO2 60 mmHg (35-45); ABG PH 7.21 pH Units (7.32-7.45); ABG PO2 61 mmHg (85-104); ABG TCO2 26 mEq/L (20-26); Blood Gas Modality ASSIST CONTROL; Blood Gas VT 350 cc
[2021-08-22 03:56] LABS: VBG Ionized Calcium 1.06 mmol/L (1.15-1.35)
[2021-08-22 03:56] LABS: Albumin 2.1 g/dL (3.5-5.7); Albumin/Globulin Ratio 0.7 (1.1-2.2); Bilirubin,Total 0.5 mg/dL (0.3-1.0); Calcium 6.3 mg/dL (8.6-10.3); Globulin 2.9 g/dL (2.4-3.5); Magnesium 2.1 mg/dL (1.6-2.6); Phosphorous 3.1 mg/dL (2.7-4.5); Potassium 4.3 mEq/L (3.5-5.1)
[2021-08-22 04:09] LABS: Lymphocytes # 2.1 K/mcL (0.6-4.6); Monocytes # 0.5 K/mcL (0.0-1.3); Neutrophils # 21.6 K/mcL (1.6-8.9); Platelet Estimate Normal (Normal); Reactive Lymphocytes Present (Not Present); Toxic Granulation Present (Not Present)
[2021-08-22] MEDS: Calcium Gluconate 1gm/50mL 1 GM/50 ML BAG IVPB SCH ×2 (05:24→06:30)
[2021-08-22] MEDS: Midazolam HCl 50 MG/100 ML IV.SOLN IVC SCH ×2 (06:53→20:06)
[2021-08-22] MEDS: Budesonide/Formoterol 160/4.5 1 PUFF INH IH SCH ×2 (07:37→20:09)
[2021-08-22] MEDS: Pantoprazole 40 MG VIAL IVP SCH (07:59)
[2021-08-22] MEDS: Cholecalciferol (D-3) 1,000 UNIT (25MCG) TABLET PO SCH (07:59)
[2021-08-22] MEDS: Aspirin 81 MG TAB.CHEW GTUBE SCH (07:59)
[2021-08-22] MEDS: Cyanocobalamin (B-12) 1,000 MCG TABLET PO SCH (07:59)
[2021-08-22] MEDS: Chlorhexidine Rinse 15 ML MOUTHWASH MM SCH ×2 (07:59→19:30)
[2021-08-22] MEDS: Dexamethasone Sodium Phos/PF 10 MG/ML VIAL IVP SCH (08:00)
[2021-08-22] MEDS: Insulin DETEMIR 100 UNIT/ML X5UNITS SUBQ SCH ×2 (08:01→21:32)
[2021-08-22] MEDS ORDERED: D10% in Water 500 ML IVC PRN (10:59)
[2021-08-22] MEDS ORDERED: 0.9 % Sodium Chloride 1,000 ML ONE (13:02)
[2021-08-22] MEDS: Dexmedetomidine HCl 400 MCG/100 ML MLS IVC SCH (13:49)
[2021-08-22] MEDS: Phenylephrine 50 MG in 0.9 % Sodium Chloride 250 ML IVC SCH (13:49)
[2021-08-22] MEDS: FentaNYL (PF) 2,500 MCG/50 ML IV.SOLN IVC SCH (13:50)
[2021-08-22] MEDS ORDERED: Clinimix E 5%-15% SOLUTION 2,000 ML with MVI, adult with vitamin K 10 ML IVC SCH (17:00)
[2021-08-22] MEDS: Amiodarone Premix 360 MG/200 ML BAG IVC SCH (19:31)
[2021-08-22] MEDS: Vasopressin 40 UNIT in D5% in Water 100 ML IVC SCH (23:00)
[2021-08-23] MEDS: Ipratropium 1 PUFF INHALER IH SCH ×6 (00:35→19:50)
[2021-08-23] MEDS: Cisatracurium 200 MG in 0.9 % Sodium Chloride 180 ML IVC SCH ×3 (00:57→23:07)
[2021-08-23] MEDS ORDERED: 0.9 % Sodium Chloride 2,000 ML ONE (02:05)
[2021-08-23] MEDS: PrismaSATE BGK 4/2.5 5,000 ML CRRT SCH ×13 (02:31→23:07)
[2021-08-23] MEDS: FentaNYL (PF) 2,500 MCG/50 ML IV.SOLN IVC SCH ×2 (03:02→17:23)
[2021-08-23] MEDS: Artificial Tears SOLN 15 ML BOTTLE BOTH EYES SCH ×6 (04:10→23:14)
[2021-08-23] MEDS: Insulin LISPRO 300 UNITS/3 ML VIAL SUBQ SCH ×6 (04:11→23:43)
[2021-08-23 04:17] LABS: Hematocrit 26.9 % (35.3-44.9); Hemoglobin 8.7 g/dL (11.5-15.4); Mean Corpuscular HGB Conc 32.3 g/dL (31.6-35.5); Mean Corpuscular Hemoglobin 31.6 pg (28.0-33.3); Mean Corpuscular Volume 97.8 fL (83.0-100.0); Mean Platelet Volume 10.6 fL (9.4-12.4); Nucleated Red Blood Cells 0.4 /100 WBC (0); Platelet Count 272 K/mcL (140-400); Red Blood Count 2.75 M/mcL (3.82-4.97); Red Cell Distribution Width 15.4 % (11.5-14.5); White Blood Count 21.8 K/mcL (4.3-11.1)
[2021-08-23 04:22] LABS: VBG Ionized Calcium 1.08 mmol/L (1.15-1.35)
[2021-08-23 04:27] LABS: INR 1.2; Prothrombin Time 13.1 Seconds (9.4-12.1)
[2021-08-23 04:30] LABS: Activated Partial Thrombo Time 22.5 Seconds (26.0-36.0)
[2021-08-23 04:37] LABS: Lymphocytes # 0.9 K/mcL (0.6-4.6); Monocytes # 0.9 K/mcL (0.0-1.3); Neutrophils # 19.6 K/mcL (1.6-8.9); Platelet Estimate Normal (Normal)
[2021-08-23 05:17] LABS: Albumin 2.3 g/dL (3.5-5.7); Albumin/Globulin Ratio 0.8 (1.1-2.2); Bilirubin,Total 0.5 mg/dL (0.3-1.0); Calcium 7.1 mg/dL (8.6-10.3); Globulin 2.8 g/dL (2.4-3.5); Magnesium 2.5 mg/dL (1.6-2.6); Phosphorous 3.8 mg/dL (2.7-4.5); Potassium 4.7 mEq/L (3.5-5.1); Total Protein 5.1 g/dL (6.4-8.9)
[2021-08-23] MEDS: Calcium Gluconate 1gm/50mL 1 GM/50 ML BAG IVPB SCH ×2 (05:44→06:37)
[2021-08-23 05:48] LABS: ABG Base Excess -2 mEq/L (-2 to 3); ABG HCO3 25 mEq/L (21-27); ABG Oxygen Saturation 95 % (95-98); ABG PCO2 49 mmHg (35-45); ABG PH 7.32 pH Units (7.32-7.45); ABG PO2 85 mmHg (85-104); ABG TCO2 26 mEq/L (20-26); Blood Gas VT 380 cc
[2021-08-23] MEDS: Budesonide/Formoterol 160/4.5 1 PUFF INH IH SCH ×2 (07:29→19:50)
[2021-08-23] MEDS: Dexmedetomidine HCl 400 MCG/100 ML MLS IVC SCH (08:21)
[2021-08-23] MEDS: Aspirin 81 MG TAB.CHEW GTUBE SCH (09:06)
[2021-08-23] MEDS: Cyanocobalamin (B-12) 1,000 MCG TABLET PO SCH (09:06)
[2021-08-23] MEDS: Piperacillin/Tazobactam 3.375 GM in 0.9 % Sodium Chloride Mini Bag 100 ML IVPB SCH ×3 (09:07→23:14)
[2021-08-23] MEDS: Dexamethasone Sodium Phos/PF 10 MG/ML VIAL IVP SCH (09:07)
[2021-08-23] MEDS: Pantoprazole 40 MG VIAL IVP SCH (09:07)
[2021-08-23] MEDS: Chlorhexidine Rinse 15 ML MOUTHWASH MM SCH ×2 (09:07→20:18)
[2021-08-23] MEDS: Cholecalciferol (D-3) 1,000 UNIT (25MCG) TABLET PO SCH (09:07)
[2021-08-23] MEDS: Midazolam HCl 50 MG/100 ML IV.SOLN IVC SCH ×2 (09:09→23:08)
[2021-08-23] MEDS ORDERED: 0.9 % Sodium Chloride 3,000 ML ONE (09:52)
[2021-08-23] MEDS: Insulin DETEMIR 100 UNIT/ML X5UNITS SUBQ SCH ×2 (10:00→20:18)
[2021-08-23] MEDS: Amiodarone Premix 360 MG/200 ML BAG IVC SCH (13:24)
[2021-08-23] MEDS: Phenylephrine 50 MG in 0.9 % Sodium Chloride 250 ML IVC SCH (15:20)
[2021-08-23] MEDS: Heparin 25,000 UNIT/250 ML 25,000 UNIT/250 ML IV.SOLN IVC SCH (15:25)
[2021-08-23] MEDS ORDERED: Clinimix E 5%-15% SOLUTION 2,000 ML with MVI, adult with vitamin K 10 ML IVC SCH (17:00)
[2021-08-23] MEDS ORDERED: 0.9 % Sodium Chloride 1,000 ML ONE (17:39)
[2021-08-23] MEDS: Norepinephrine 16 MG in 0.9 % Sodium Chloride 500 ML IVC SCH (18:57)
[2021-08-23] MEDS: Vasopressin 40 UNIT in D5% in Water 100 ML IVC SCH (21:58)
[2021-08-24] MEDS: Ipratropium 1 PUFF INHALER IH SCH ×7 (00:01→23:59)
[2021-08-24] MEDS: PrismaSATE BGK 4/2.5 5,000 ML CRRT SCH ×10 (01:01→23:20)
[2021-08-24] MEDS ORDERED: 0.9 % Sodium Chloride 1,000 ML ONE ×3 (01:05→11:20)
[2021-08-24 03:35] LABS: White Blood Count 19.6 K/mcL (4.3-11.1)
[2021-08-24] MEDS: Artificial Tears SOLN 15 ML BOTTLE BOTH EYES SCH ×6 (03:35→23:51)
[2021-08-24 03:36] LABS: Hematocrit 21.7 % (35.3-44.9); Mean Corpuscular HGB Conc 32.3 g/dL (31.6-35.5); Mean Corpuscular Hemoglobin 30.4 pg (28.0-33.3); Mean Corpuscular Volume 94.3 fL (83.0-100.0); Mean Platelet Volume 11.1 fL (9.4-12.4); Nucleated Red Blood Cells 0.6 /100 WBC (0); Platelet Count 181 K/mcL (140-400)
[2021-08-24] MEDS: Insulin LISPRO 300 UNITS/3 ML VIAL SUBQ SCH ×5 (03:36→20:15)
[2021-08-24] MEDS: Dexmedetomidine HCl 400 MCG/100 ML MLS IVC SCH (03:36)
[2021-08-24 03:41] LABS: VBG Ionized Calcium 1.09 mmol/L (1.15-1.35)
[2021-08-24 03:55] LABS: Albumin 2.3 g/dL (3.5-5.7); Albumin/Globulin Ratio 0.9 (1.1-2.2); Bilirubin,Total 0.4 mg/dL (0.3-1.0); Calcium 7.2 mg/dL (8.6-10.3); Globulin 2.6 g/dL (2.4-3.5); Magnesium 2.4 mg/dL (1.6-2.6); Phosphorous 2.7 mg/dL (2.7-4.5); Potassium 4.8 mEq/L (3.5-5.1); Total Protein 4.9 g/dL (6.4-8.9)
[2021-08-24 03:58] LABS: Lymphocytes # 0.4 K/mcL (0.6-4.6); Monocytes # 0.8 K/mcL (0.0-1.3); Neutrophils # 18.4 K/mcL (1.6-8.9); Platelet Estimate Normal (Normal); Toxic Granulation Present (Not Present)
[2021-08-24] MEDS: Calcium Gluconate 1gm/50mL 1 GM/50 ML BAG IVPB SCH ×2 (04:15→05:20)
[2021-08-24 04:55] LABS: ABG Base Excess -2 mEq/L (-2 to 3); ABG HCO3 22 mEq/L (21-27); ABG Oxygen Saturation 99 % (95-98); ABG PCO2 31 mmHg (35-45); ABG PH 7.46 pH Units (7.32-7.45); ABG PO2 129 mmHg (85-104); ABG TCO2 23 mEq/L (20-26); Blood Gas Modality ASSIST CONTROL; Blood Gas VT 380 cc
[2021-08-24] MEDS ORDERED: 0.9 % Sodium Chloride 3,000 ML ONE (06:04)
[2021-08-24] MEDS: FentaNYL (PF) 2,500 MCG/50 ML IV.SOLN IVC SCH ×2 (07:00→16:10)
[2021-08-24] MEDS: Budesonide/Formoterol 160/4.5 1 PUFF INH IH SCH ×2 (07:42→19:39)
[2021-08-24] MEDS: Piperacillin/Tazobactam 3.375 GM in 0.9 % Sodium Chloride Mini Bag 100 ML IVPB SCH ×3 (08:25→23:50)
[2021-08-24] MEDS: Cholecalciferol (D-3) 1,000 UNIT (25MCG) TABLET PO SCH (08:26)
[2021-08-24] MEDS: Aspirin 81 MG TAB.CHEW GTUBE SCH (08:26)
[2021-08-24] MEDS: Cyanocobalamin (B-12) 1,000 MCG TABLET PO SCH (08:26)
[2021-08-24] MEDS: Dexamethasone Sodium Phos/PF 10 MG/ML VIAL IVP SCH (08:26)
[2021-08-24] MEDS: Pantoprazole 40 MG VIAL IVP SCH (08:26)
[2021-08-24] MEDS: Chlorhexidine Rinse 15 ML MOUTHWASH MM SCH ×2 (08:26→19:38)
[2021-08-24] MEDS: Insulin DETEMIR 100 UNIT/ML X5UNITS SUBQ SCH ×2 (08:28→20:15)
[2021-08-24] MEDS ORDERED: Calcium Gluconate 1gm/50mL 1 GM/50 ML BAG IVPB PRN (10:25)
[2021-08-24] MEDS ORDERED: 0.9 % Sodium Chloride 2,000 ML ONE (12:31)
[2021-08-24 12:59] LABS: ABG Ionized Calcium 1.13 mmol/L (1.15-1.35)
[2021-08-24] MEDS: Calcium Chloride 4,000 MG in 0.9 % Sodium Chloride 1,000 ML CRRT SCH (13:00)
[2021-08-24] MEDS: Midazolam HCl 50 MG/100 ML IV.SOLN IVC SCH (14:10)
[2021-08-24] MEDS: Amiodarone Premix 360 MG/200 ML BAG IVC SCH (14:14)
[2021-08-24] MEDS: Phenylephrine 50 MG in 0.9 % Sodium Chloride 250 ML IVC SCH (14:33)
[2021-08-24] MEDS: Heparin 25,000 UNIT/250 ML 25,000 UNIT/250 ML IV.SOLN IVC SCH (14:37)
[2021-08-24] MEDS ORDERED: Clinimix E 5%-15% SOLUTION 2,000 ML with MVI, adult with vitamin K 10 ML IVC SCH (17:00)
[2021-08-24 18:16] LABS: VBG Ionized Calcium 1.02 mmol/L (1.15-1.35)
[2021-08-24] MEDS: Vasopressin 40 UNIT in D5% in Water 100 ML IVC SCH (22:15)
[2021-08-24 23:09] LABS: VBG Ionized Calcium 1.06 mmol/L (1.15-1.35)
[2021-08-25] MEDS: Insulin LISPRO 300 UNITS/3 ML VIAL SUBQ SCH ×5 (00:13→20:28)
[2021-08-25] MEDS: Midazolam HCl 50 MG/100 ML IV.SOLN IVC SCH ×2 (00:23→13:36)
[2021-08-25 01:17] LABS: VBG Ionized Calcium 1.02 mmol/L (1.15-1.35)
[2021-08-25] MEDS: PrismaSATE BGK 4/2.5 5,000 ML CRRT SCH ×10 (02:40→20:41)
[2021-08-25 03:29] LABS: VBG Ionized Calcium 1.03 mmol/L (1.15-1.35)
[2021-08-25] MEDS: Artificial Tears SOLN 15 ML BOTTLE BOTH EYES SCH ×6 (03:31→23:50)
[2021-08-25 03:32] LABS: Hemoglobin 8.3 g/dL (11.5-15.4); Mean Corpuscular HGB Conc 30.7 g/dL (31.6-35.5); Mean Corpuscular Volume 97.5 fL (83.0-100.0); Mean Platelet Volume 11.8 fL (9.4-12.4); Nucleated Red Blood Cells 0.7 /100 WBC (0); Platelet Count 181 K/mcL (140-400); Red Blood Count 2.77 M/mcL (3.82-4.97); Red Cell Distribution Width 16.1 % (11.5-14.5); White Blood Count 21.9 K/mcL (4.3-11.1)
[2021-08-25] MEDS: Ipratropium 1 PUFF INHALER IH SCH ×6 (03:47→23:05)
[2021-08-25 03:52] LABS: Alanine Aminotransferase 10 Units/L (7-52); Albumin 2.6 g/dL (3.5-5.7); Albumin/Globulin Ratio 0.9 (1.1-2.2); Alkaline Phosphatase 107 Units/L (34-104); Aspartate Amino Transferase 22 Units/L (13-39); BUN/Creatinine Ratio 25 (6-26); Bilirubin,Total 0.4 mg/dL (0.3-1.0); Blood Urea Nitrogen 25 mg/dL (8-23); Carbon Dioxide 26 mEq/L (23-29); Chloride 100 mEq/L (98-107); Glucose 282 mg/dL (70-105); Magnesium 2.2 mg/dL (1.6-2.6); Osmolality,Calculated 299 (280-300); Phosphorous 2.5 mg/dL (2.7-4.5); Potassium 4.8 mEq/L (3.5-5.1); Sodium 137 mEq/L (136-145); Total Protein 5.6 g/dL (6.4-8.9); eGFR For African Americans > 60 (> 60); eGFR For Non-African Americans 54 (> 60)
[2021-08-25] MEDS: Norepinephrine 16 MG in 0.9 % Sodium Chloride 500 ML IVC SCH (04:00)
[2021-08-25 04:07] LABS: Large Platelets Present (Not Present); Platelet Estimate Normal (Normal); Smudge Cells Present (Not Present)
[2021-08-25 04:08] LABS: Lymphocytes # 0.4 K/mcL (0.6-4.6); Monocytes # 0.9 K/mcL (0.0-1.3); Neutrophils # 19.3 K/mcL (1.6-8.9)
[2021-08-25 04:40] LABS: ABG Base Excess -1 mEq/L (-2 to 3); ABG HCO3 26 mEq/L (21-27); ABG Oxygen Saturation 98 % (95-98); ABG PCO2 52 mmHg (35-45); ABG PO2 112 mmHg (85-104); ABG TCO2 27 mEq/L (20-26); Blood Gas VT 300 cc
[2021-08-25 05:34] LABS: VBG Ionized Calcium 1.09 mmol/L (1.15-1.35)
[2021-08-25] MEDS: FentaNYL (PF) 2,500 MCG/50 ML IV.SOLN IVC SCH ×2 (06:00→20:41)
[2021-08-25] MEDS: Calcium Chloride 4,000 MG in 0.9 % Sodium Chloride 1,000 ML CRRT SCH ×2 (06:17→16:30)
[2021-08-25] MEDS: Budesonide/Formoterol 160/4.5 1 PUFF INH IH SCH ×2 (07:08→19:55)
[2021-08-25] MEDS: Chlorhexidine Rinse 15 ML MOUTHWASH MM SCH ×2 (07:41→20:30)
[2021-08-25] MEDS: Aspirin 81 MG TAB.CHEW GTUBE SCH (07:41)
[2021-08-25] MEDS: Pantoprazole 40 MG VIAL IVP SCH (07:42)
[2021-08-25] MEDS: Cyanocobalamin (B-12) 1,000 MCG TABLET PO SCH (07:42)
[2021-08-25] MEDS: Dexamethasone Sodium Phos/PF 10 MG/ML VIAL IVP SCH (07:43)
[2021-08-25] MEDS: Piperacillin/Tazobactam 3.375 GM in 0.9 % Sodium Chloride Mini Bag 100 ML IVPB SCH ×3 (08:00→23:54)
[2021-08-25] MEDS: Insulin DETEMIR 100 UNIT/ML X5UNITS SUBQ SCH ×2 (08:18→22:16)
[2021-08-25] MEDS: Cholecalciferol (D-3) 1,000 UNIT (25MCG) TABLET PO SCH (09:00)
[2021-08-25 10:40] LABS: VBG Ionized Calcium 0.72 mmol/L (1.15-1.35)
[2021-08-25 12:55] LABS: VBG Ionized Calcium 0.99 mmol/L (1.15-1.35)
[2021-08-25] MEDS: Heparin 25,000 UNIT/250 ML 25,000 UNIT/250 ML IV.SOLN IVC SCH (13:42)
[2021-08-25] MEDS: Amiodarone Premix 360 MG/200 ML BAG IVC SCH (13:42)
[2021-08-25] MEDS: Dexmedetomidine HCl 400 MCG/100 ML MLS IVC SCH (13:42)
[2021-08-25] MEDS: Phenylephrine 50 MG in 0.9 % Sodium Chloride 250 ML IVC SCH (13:43)
[2021-08-25] MEDS ORDERED: Clinimix E 5%-15% SOLUTION 2,000 ML with MVI, adult with vitamin K 10 ML IVC SCH (17:00)
[2021-08-25 17:33] LABS: VBG Ionized Calcium 0.95 mmol/L (1.15-1.35)
[2021-08-25 19:39] LABS: VBG Ionized Calcium 0.66 mmol/L (1.15-1.35)
[2021-08-25] MEDS: Calcium Gluconate 1gm/50mL 1 GM/50 ML BAG IVPB PRN ×3 (19:47→22:40)
[2021-08-25 22:28] LABS: VBG Ionized Calcium 0.81 mmol/L (1.15-1.35)
[2021-08-25] MEDS: Vasopressin 40 UNIT in D5% in Water 100 ML IVC SCH (23:00)
[2021-08-26] MEDS: PrismaSATE BGK 4/2.5 5,000 ML CRRT SCH ×13 (00:01→21:42)
[2021-08-26 00:25] LABS: VBG Ionized Calcium 0.97 mmol/L (1.15-1.35)
[2021-08-26] MEDS: Calcium Gluconate 1gm/50mL 1 GM/50 ML BAG IVPB PRN ×8 (01:09→22:34)
[2021-08-26] MEDS: Insulin LISPRO 300 UNITS/3 ML VIAL SUBQ SCH ×7 (01:16→19:43)
[2021-08-26] MEDS: Dexmedetomidine HCl 400 MCG/100 ML MLS IVC SCH (01:17)
[2021-08-26 02:26] LABS: VBG Ionized Calcium 0.89 mmol/L (1.15-1.35)
[2021-08-26] MEDS: Ipratropium 1 PUFF INHALER IH SCH ×6 (03:32→23:16)
[2021-08-26] MEDS: Calcium Chloride 4,000 MG in 0.9 % Sodium Chloride 1,000 ML CRRT SCH ×4 (03:35→20:39)
[2021-08-26 03:39] LABS: Hemoglobin 7.5 g/dL (11.5-15.4); Mean Corpuscular Volume 97.6 fL (83.0-100.0)
[2021-08-26 03:40] LABS: ABG Base Excess -1 mEq/L (-2 to 3); ABG HCO3 26 mEq/L (21-27); ABG Oxygen Saturation 94 % (95-98); ABG PCO2 51 mmHg (35-45); ABG PH 7.31 pH Units (7.32-7.45); ABG PO2 79 mmHg (85-104); ABG TCO2 27 mEq/L (20-26); Blood Gas VT 350 cc
[2021-08-26 03:41] LABS: Hematocrit 24.2 % (35.3-44.9); Immature Platelets 13.2 % (1.1-6.1); Mean Corpuscular Hemoglobin 30.2 pg (28.0-33.3); Mean Platelet Volume 11.9 fL (9.4-12.4); Red Blood Count 2.48 M/mcL (3.82-4.97); Red Cell Distribution Width 15.5 % (11.5-14.5); White Blood Count 15.6 K/mcL (4.3-11.1)
[2021-08-26 03:59] LABS: BUN/Creatinine Ratio 23 (6-26); Blood Urea Nitrogen 24 mg/dL (8-23); Calcium 10.8 mg/dL (8.6-10.3); Carbon Dioxide 25 mEq/L (23-29); Chloride 103 mEq/L (98-107); Glucose 254 mg/dL (70-105); Osmolality,Calculated 299 (280-300); Phosphorous 2.4 mg/dL (2.7-4.5); Potassium 4.2 mEq/L (3.5-5.1); Sodium 138 mEq/L (136-145); eGFR For African Americans > 60 (> 60); eGFR For Non-African Americans 54 (> 60)
[2021-08-26] MEDS: Midazolam HCl 50 MG/100 ML IV.SOLN IVC SCH ×2 (04:46→17:34)
[2021-08-26] MEDS: Artificial Tears SOLN 15 ML BOTTLE BOTH EYES SCH ×5 (04:47→19:43)
[2021-08-26 05:07] LABS: VBG Ionized Calcium 0.72 mmol/L (1.15-1.35)
[2021-08-26 07:21] LABS: VBG Ionized Calcium 0.85 mmol/L (1.15-1.35)
[2021-08-26] MEDS: Budesonide/Formoterol 160/4.5 1 PUFF INH IH SCH ×2 (07:50→20:12)
[2021-08-26] MEDS: Aspirin 81 MG TAB.CHEW GTUBE SCH (08:02)
[2021-08-26] MEDS: Chlorhexidine Rinse 15 ML MOUTHWASH MM SCH ×2 (08:02→20:29)
[2021-08-26] MEDS: Piperacillin/Tazobactam 3.375 GM in 0.9 % Sodium Chloride Mini Bag 100 ML IVPB SCH (08:02)
[2021-08-26] MEDS: Cyanocobalamin (B-12) 1,000 MCG TABLET PO SCH (08:02)
[2021-08-26] MEDS: Dexamethasone Sodium Phos/PF 10 MG/ML VIAL IVP SCH (08:03)
[2021-08-26] MEDS: Cholecalciferol (D-3) 1,000 UNIT (25MCG) TABLET PO SCH (08:03)
[2021-08-26] MEDS: Pantoprazole 40 MG VIAL IVP SCH (08:03)
[2021-08-26] MEDS: Insulin DETEMIR 100 UNIT/ML X5UNITS SUBQ SCH ×2 (09:02→20:36)
[2021-08-26 09:16] LABS: VBG Ionized Calcium 0.88 mmol/L (1.15-1.35)
[2021-08-26] MEDS: Heparin 25,000 UNIT/250 ML 25,000 UNIT/250 ML IV.SOLN IVC SCH (09:30)
[2021-08-26] MEDS: Amiodarone Premix 360 MG/200 ML BAG IVC SCH (09:30)
[2021-08-26] MEDS: FentaNYL (PF) 2,500 MCG/50 ML IV.SOLN IVC SCH ×2 (09:50→23:46)
[2021-08-26] MEDS ORDERED: 0.9 % Sodium Chloride 2,000 ML ONE (10:52)
[2021-08-26 11:23] LABS: Hematocrit 26.4 % (35.3-44.9); Hemoglobin 7.7 g/dL (11.5-15.4)
[2021-08-26 11:49] LABS: VBG Ionized Calcium 0.77 mmol/L (1.15-1.35)
[2021-08-26 13:59] LABS: VBG Ionized Calcium 1.46 mmol/L (1.15-1.35)
[2021-08-26 16:09] LABS: VBG Ionized Calcium 1.42 mmol/L (1.15-1.35)
[2021-08-26] MEDS ORDERED: Insulin DETEMIR 100 UNIT/ML X5UNITS SUBQ ONE (16:30)
[2021-08-26] MEDS: Phenylephrine 50 MG in 0.9 % Sodium Chloride 250 ML IVC SCH (17:26)
[2021-08-26 19:02] LABS: VBG Ionized Calcium 1.46 mmol/L (1.15-1.35)
[2021-08-26] MEDS ORDERED: Insulin DETEMIR 100 UNIT/ML X5UNITS SUBQ SCH (21:00)
[2021-08-26 21:22] LABS: VBG Ionized Calcium 0.62 mmol/L (1.15-1.35)
[2021-08-26 23:14] LABS: VBG Ionized Calcium 0.59 mmol/L (1.15-1.35)
[2021-08-27] MEDS: Calcium Gluconate 1gm/50mL 1 GM/50 ML BAG IVPB PRN ×3 (00:03→02:38)
[2021-08-27] MEDS: PrismaSATE BGK 4/2.5 5,000 ML CRRT SCH ×6 (00:22→11:20)
[2021-08-27] MEDS: Norepinephrine 16 MG in 0.9 % Sodium Chloride 500 ML IVC SCH (00:23)
[2021-08-27] MEDS: Artificial Tears SOLN 15 ML BOTTLE BOTH EYES SCH ×7 (00:25→23:03)
[2021-08-27] MEDS: Insulin LISPRO 300 UNITS/3 ML VIAL SUBQ SCH ×7 (00:35→23:04)
[2021-08-27] MEDS: Dexmedetomidine HCl 400 MCG/100 ML MLS IVC SCH ×2 (01:07→18:51)
[2021-08-27] MEDS: Cisatracurium 200 MG in 0.9 % Sodium Chloride 180 ML IVC SCH (01:07)
[2021-08-27 02:19] LABS: VBG Ionized Calcium 0.99 mmol/L (1.15-1.35)
[2021-08-27] MEDS: Ipratropium 1 PUFF INHALER IH SCH ×6 (03:07→23:31)
[2021-08-27] MEDS ORDERED: 0.9 % Sodium Chloride 2,000 ML ONE (03:38)
[2021-08-27 04:02] LABS: Hematocrit 24.1 % (35.3-44.9); Hemoglobin 7.5 g/dL (11.5-15.4); Mean Corpuscular HGB Conc 31.1 g/dL (31.6-35.5); Mean Corpuscular Hemoglobin 30.9 pg (28.0-33.3); Mean Corpuscular Volume 99.2 fL (83.0-100.0); Mean Platelet Volume 12.2 fL (9.4-12.4); Platelet Count 163 K/mcL (140-400); Red Blood Count 2.43 M/mcL (3.82-4.97); Red Cell Distribution Width 15.5 % (11.5-14.5); White Blood Count 22.5 K/mcL (4.3-11.1)
[2021-08-27 04:06] LABS: ABG Base Excess 4 mEq/L (-2 to 3); ABG HCO3 30 mEq/L (21-27); ABG Oxygen Saturation 88 % (95-98); ABG PCO2 49 mmHg (35-45); ABG PH 7.39 pH Units (7.32-7.45); ABG PO2 56 mmHg (85-104); ABG TCO2 31 mEq/L (20-26); Blood Gas VT 350 cc
[2021-08-27 04:24] LABS: BUN/Creatinine Ratio 20 (6-26); Blood Urea Nitrogen 15 mg/dL (8-23); Carbon Dioxide 29 mEq/L (23-29); Chloride 103 mEq/L (98-107); Potassium 3.9 mEq/L (3.5-5.1); Sodium 144 mEq/L (136-145); eGFR For African Americans > 60 (> 60)
[2021-08-27 04:25] LABS: Calcium 12.8 mg/dL (8.6-10.3); Glucose 117 mg/dL (70-105); Magnesium 1.8 mg/dL (1.6-2.6); Osmolality,Calculated 300 (280-300); eGFR For Non-African Americans > 60 (> 60)
[2021-08-27 04:45] LABS: VBG Ionized Calcium 1.03 mmol/L (1.15-1.35)
[2021-08-27] MEDS: Calcium Chloride 4,000 MG in 0.9 % Sodium Chloride 1,000 ML CRRT SCH ×2 (05:29→10:27)
[2021-08-27] MEDS: Midazolam HCl 50 MG/100 ML IV.SOLN IVC SCH (05:57)
[2021-08-27] MEDS ORDERED: 0.9 % Sodium Chloride 1,000 ML ONE (07:16)
[2021-08-27] MEDS: Chlorhexidine Rinse 15 ML MOUTHWASH MM SCH ×2 (07:25→20:05)
[2021-08-27] MEDS: Aspirin 81 MG TAB.CHEW GTUBE SCH (07:25)
[2021-08-27] MEDS: Pantoprazole 40 MG VIAL IVP SCH (07:25)
[2021-08-27] MEDS: Dexamethasone Sodium Phos/PF 10 MG/ML VIAL IVP SCH (07:25)
[2021-08-27] MEDS: Cyanocobalamin (B-12) 1,000 MCG TABLET PO SCH (07:25)
[2021-08-27] MEDS: Cholecalciferol (D-3) 1,000 UNIT (25MCG) TABLET PO SCH (07:25)
[2021-08-27] MEDS: Budesonide/Formoterol 160/4.5 1 PUFF INH IH SCH ×2 (07:28→20:12)
[2021-08-27 07:30] LABS: VBG Ionized Calcium 1.03 mmol/L (1.15-1.35)
[2021-08-27] MEDS: Insulin DETEMIR 100 UNIT/ML X5UNITS SUBQ SCH ×2 (07:56→20:06)
[2021-08-27 10:34] LABS: VBG Ionized Calcium 1.72 mmol/L (1.15-1.35)
[2021-08-27] MEDS: Vasopressin 40 UNIT in D5% in Water 100 ML IVC SCH (11:19)
[2021-08-27] MEDS: Phenylephrine 50 MG in 0.9 % Sodium Chloride 250 ML IVC SCH (11:19)
[2021-08-27] MEDS: Amiodarone Premix 360 MG/200 ML BAG IVC SCH (11:19)
[2021-08-27] MEDS ORDERED: *HR* Heparin 5,000 UNIT/ML VIAL ONE (11:53)
[2021-08-27] MEDS: FentaNYL (PF) 2,500 MCG/50 ML IV.SOLN IVC SCH (15:23)
[2021-08-27] MEDS ORDERED: Clinimix E 5%-15% SOLUTION 2,000 ML with MVI, adult with vitamin K 10 ML IVC SCH (17:00)
[2021-08-27] MEDS: *HR* Heparin 5,000 UNIT/ML VIAL SQ SCH (20:08)
[2021-08-28] MEDS: Dexmedetomidine HCl 400 MCG/100 ML MLS IVC SCH ×3 (00:35→13:45)
[2021-08-28] MEDS: Cisatracurium 200 MG in 0.9 % Sodium Chloride 180 ML IVC SCH (01:27)
[2021-08-28] MEDS: Ipratropium 1 PUFF INHALER IH SCH ×5 (03:51→20:37)
[2021-08-28 04:04] LABS: ABG Base Excess 6 mEq/L (-2 to 3); ABG HCO3 31 mEq/L (21-27); ABG Oxygen Saturation 91 % (95-98); ABG PCO2 46 mmHg (35-45); ABG PH 7.44 pH Units (7.32-7.45); ABG PO2 59 mmHg (85-104); ABG TCO2 33 mEq/L (20-26); Blood Gas VT 350 cc
[2021-08-28 04:08] LABS: Hematocrit 17.7 % (35.3-44.9); Mean Corpuscular HGB Conc 29.9 g/dL (31.6-35.5); Mean Corpuscular Hemoglobin 29.8 pg (28.0-33.3); Mean Corpuscular Volume 99.4 fL (83.0-100.0); Mean Platelet Volume 12.8 fL (9.4-12.4); Red Blood Count 1.78 M/mcL (3.82-4.97); Red Cell Distribution Width 16.2 % (11.5-14.5)
[2021-08-28 04:09] LABS: VBG Ionized Calcium 1.55 mmol/L (1.15-1.35)
[2021-08-28 04:11] LABS: White Blood Count 9.9 K/mcL (4.3-11.1)
[2021-08-28 04:13] LABS: Hemoglobin 5.3 g/dL (11.5-15.4); Platelet Count 96 K/mcL (140-400)
[2021-08-28] MEDS ORDERED: 0.9 % Sodium Chloride 250 ML IVC SCH (04:15)
[2021-08-28 04:27] LABS: Calcium 10.7 mg/dL (8.6-10.3); Magnesium 1.9 mg/dL (1.6-2.6); Phosphorous 4.3 mg/dL (2.7-4.5); Potassium 4.1 mEq/L (3.5-5.1)
[2021-08-28] MEDS: Artificial Tears SOLN 15 ML BOTTLE BOTH EYES SCH ×4 (04:27→14:34)
[2021-08-28] MEDS: Insulin LISPRO 300 UNITS/3 ML VIAL SUBQ SCH ×4 (04:27→17:09)
[2021-08-28 04:45] LABS: Hematocrit 17.6 % (35.3-44.9)
[2021-08-28 04:47] LABS: Hemoglobin 5.3 g/dL (11.5-15.4)
[2021-08-28] MEDS: *HR* Heparin 5,000 UNIT/ML VIAL SQ SCH ×2 (06:18→17:09)
[2021-08-28] MEDS: Budesonide/Formoterol 160/4.5 1 PUFF INH IH SCH (07:16)
[2021-08-28] MEDS: Chlorhexidine Rinse 15 ML MOUTHWASH MM SCH (07:17)
[2021-08-28] MEDS: Pantoprazole 40 MG VIAL IVP SCH (07:18)
[2021-08-28] MEDS: Aspirin 81 MG TAB.CHEW GTUBE SCH (07:18)
[2021-08-28] MEDS: Cyanocobalamin (B-12) 1,000 MCG TABLET PO SCH (07:18)
[2021-08-28] MEDS: Cholecalciferol (D-3) 1,000 UNIT (25MCG) TABLET PO SCH (07:18)
[2021-08-28] MEDS: Insulin DETEMIR 100 UNIT/ML X5UNITS SUBQ SCH (07:28)
[2021-08-28] MEDS ORDERED: 0.9 % Sodium Chloride 250 ML ONE (07:34)
[2021-08-28] MEDS: Norepinephrine 16 MG in 0.9 % Sodium Chloride 500 ML IVC SCH (08:47)
[2021-08-28 11:40] LABS: Hematocrit 24.3 % (35.3-44.9); Hemoglobin 7.6 g/dL (11.5-15.4)
[2021-08-28] MEDS: Amiodarone Premix 360 MG/200 ML BAG IVC SCH (12:38)
[2021-08-28] MEDS: Vasopressin 40 UNIT in D5% in Water 100 ML IVC SCH (12:38)
[2021-08-28] MEDS: Phenylephrine 50 MG in 0.9 % Sodium Chloride 250 ML IVC SCH (12:38)
[2021-08-28 16:22] VITALS: TEMP 97.7
[2021-08-28] MEDS ORDERED: Clinimix E 5%-15% SOLUTION 2,000 ML with MVI, adult with vitamin K 10 ML, ZN/CU/MN/SE... IVC ONE (17:00)
[2021-08-28] MEDS ORDERED: Pantoprazole 40 MG VIAL IVP SCH (18:00)
[2021-08-28] MEDS ORDERED: Glycopyrrolate 0.2 MG/ML VIAL IVP ONE (18:15)
[2021-08-28] MEDS ORDERED: *HR* LORazepam 2 MG/ML VIAL IVP PRN (18:26)
[2021-08-28] MEDS ORDERED: FentaNYL (PF) 2,500 MCG/50 ML IV.SOLN IVC SCH (18:27)
[2021-08-28] MEDS ORDERED: *HR* FentaNYL (PF) 100 MCG/2 ML VIAL IVP PRN (18:34)
[2021-08-28 19:37] VITALS: BP 170/70; PULSE 75; O2SAT 94
[2021-08-30] MEDS ORDERED: Levothyroxine Sodium 100 MCG VIAL IVP SCH (09:00)
== END 2021-08-28 23:26 | disposition expired | DRG 870 ==
LOC: EMEROOARM 12:37 → 2NENU 18:49 → SUATTDRO 18:49 → 2NENU 20:01 → ICNU 08-15 23:40
PROVIDERS: ADMIT Internal Medicine; ATTEND Family Medicine